=== PATIENT | female | born 1945 | race Caucasian/White ===

== ENCOUNTER 2017-08-30 08:20 | Inpatient (IN) | payer MEDICARE, BC ==
[2017-08-30] MEDS ORDERED: methylPREDNISolone Sodium Succinate 40 MG/1 ML SDV IVPUSH ONE (08:44)
[2017-08-30] MEDS ORDERED: Sodium Chloride 0.9% 10 ML Syringe FLUSH PRN (08:44)
--- NOTE | 2017-08-30 08:50 | EDM.PDOC ---
ED HPI GENERAL MEDICAL PROBLEM - General Chief Complaint: Respiratory Problem Stated Complaint: [facility] Time Seen by Provider: 08/30/17 08:35 Source of Information: Reports: Patient, EMS, Old Records History Limitations: Reports: No Limitations - History of Present Illness INITIAL COMMENTS - FREE TEXT/NARRATIVE: 71 yo female with known COPD who still smokes developed SOB about 24 hrs ago that has progressed. Had not sought medical care until calling EMS today. She has not had a fever. Her cough has been non-productive. She has some central chest tightness with deep breathing or coughing only. No leg swelling or calf pain. Lives with her who is not coming in at this time. Got a Duoneb and an albuterol neb en route via EMS with some benefit. Is on home O2 @ 3 liters/min/nc. Onset: Gradual Onset Date: 08/29/17 Duration: Hour(s):, Getting Worse Location: Reports: Chest Quality: Reports: Dull (sternal area with breathing/coughing) Severity: Mild (discomfort is mild, SOB was severe.) Improves with: Reports: Medication Worsens with: Reports: Other (time/smoking) Context: Reports: Other (life long smoker with known COPD) Associated Symptoms: Reports: Chest Pain (mild sternal tenderness with coughing or deep breathing only), Cough, Shortness of Breath. 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: 2 nebs Denies Pain Score (Numeric/FACES): 0 - Related Data Allergies Allergy/AdvReac Type Severity Reaction Status Date / Time SEB Inhibitors AdvReac Cough Verified 08/30/17 08:38 Home Meds: Home Meds Albuterol Sulfate [Proair Hfa] 2 puff PO QID 04/29/15 [History] Amitriptyline [Elavil] 20 mg PO BEDTIME PRN 04/29/15 [History] Tiotropium [Spiriva HandiHaler] 1 cap PO DAILY 04/29/15 [History] amLODIPine [Norvasc] 5 mg PO DAILY 04/29/15 [History] Arformoterol [Brovana] 1 dose INH BID 08/30/17 [History] Gabapentin [Neurontin] 300 mg PO BID 08/30/17 [History] Past Medical History HEENT History: Reports: Cataract Cardiovascular History: Reports: Hypertension 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, 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: Musculoskeletal History: Reports: Back Pain, Chronic - Infectious Disease History Infectious Disease History: Reports: Chicken Pox - Past Surgical History Female Surgical History: Reports: Section Social & Family History - Family History Family Medical History: Noncontributory - Tobacco Use Smoking Status *Q: Current Some Day Smoker Years of Tobacco use: 40 Packs/Tins Daily: 1 Second Hand Smoke Exposure: No - Alcohol Use Days Per Week of Alcohol Use: 1 Number of Drinks Per Day: 1 Total Drinks Per Week: 1 - Recreational Drug Use Recreational Drug Use: No - Living Situation & Occupation Living situation: Reports: Occupation: Employed ED ROS GENERAL - Review of Systems Review Of Systems: See Below Constitutional: Reports: No Symptoms HEENT: Reports: No Symptoms Respiratory: Reports: Shortness of Breath, Wheezing, Cough. Denies: Pleuritic Chest Pain, Sputum, Hemoptysis Cardiovascular: Reports: No Symptoms GI/Abdominal: Reports: No Symptoms : Reports: No Symptoms Musculoskeletal: Reports: No Symptoms Skin: Reports: No Symptoms Neurological: Reports: No Symptoms Psychiatric: Reports: No Symptoms ED EXAM, GENERAL - Physical Exam Exam: See Below Exam Limited By: No Limitations General Appearance: Alert, WD/WN, Mild Distress Eye Exam: Bilateral Eye: Normal Inspection Ears: Normal External Exam, Normal Canal, Hearing Grossly Normal, Normal TMs Ear Exam: Bilateral Ear: Auricle Normal, Canal Normal, TM normal Nose: Normal Inspection, Normal Mucosa, No Blood Throat/Mouth: Normal Inspection, Normal Lips, Normal Oropharynx, Normal Voice, No Airway Compromise Head: Atraumatic, Normocephalic Neck: Normal Inspection, Supple, Non-Tender Respiratory/Chest: No Respiratory Distress (minimal currently), Decreased Breath Sounds, Wheezing, Accessory Muscle Use, Other (mild tachypnea) Cardiovascular: Regular Rate, Rhythm, Tachycardia GI/Abdominal: Normal Bowel Sounds, Soft, Non-Tender Back Exam: Normal Inspection. No: CVA Tenderness (R), CVA Tenderness (L) Extremities: Normal Inspection, Normal Range of Motion, Non-Tender, No Pedal Edema Neurological: Alert, Oriented, CN II-XII Intact, Normal Cognition, No Motor/ Sensory Deficits Psychiatric: Normal Affect, Normal Mood Skin Exam: Warm, Dry, Intact, Normal Color, No Rash Lymphatic: No Adenopathy Course - Vital Signs Text/Narrative:: Dr. Neri called @ 1036h, to see in ER. Last Recorded V/S: Last Vital Signs Temp 36.0 C 08/30/17 08:36 Pulse 98 08/30/17 10:25 Resp 20 08/30/17 10:25 BP 144/84 H 08/30/17 10:25 Pulse Ox 95 08/30/17 10:25 - Orders/Labs/Meds Orders: Active Orders 24 hr Category Date Time Status Cardiac Monitoring [RC] .As Directed Care 08/30/17 08:54 Active RT Aerosol Therapy [RC] ASDIRECTED Care 08/30/17 09:25 Active UA W/MICROSCOPIC [URIN] Stat Lab 08/30/17 09:52 Ordered Sodium Chloride 0.9% [Saline Flush] Med 08/30/17 08:44 Active 10 ml FLUSH ASDIRECTED PRN Saline Lock Insert [OM.PC] Routine Oth 08/30/17 08:44 Ordered Medication Orders Sodium Chloride (Saline Flush) 10 ml FLUSH ASDIRECTED PRN PRN Reason: Keep Vein Open Last Admin: 08/30/17 08:59 Dose: 10 ml Labs: Laboratory Tests 08/30/17 08/30/17 08/30/17 Range/Units 08:54 08:54 09:52 WBC 7.2 (4.5-11.0) K/uL RBC 4.53 (3.30-5.50) M/uL Hgb 12.4 (12.0-15.0) g/dL Hct 39.7 (36.0-48.0) % MCV 88 (80-98) fL MCH 27 (27-31) pg MCHC 31 L (32-36) % Plt Count 227 (150-400) K/uL Sodium 141 (140-148) mmol/L Potassium 3.8 (3.6-5.2) mmol/L Chloride 105 (100-108) mmol/L Carbon Dioxide 29 (21-32) mmol/L Anion Gap 7.1 (5.0-14.0) mmol/L BUN 13 (7-18) mg/dL Creatinine 0.6 (0.6-1.0) mg/dL Est Cr Clr Drug Dosing 63.56 mL/min Estimated GFR (MDRD) > 60 (>60) Glucose 107 H (74-106) mg/dL Calcium 8.8 (8.5-10.1) mg/dL Troponin I < 0.017 (0.000-0.056) ng/mL Urine Color Yellow Urine Appearance Clear Urine pH 6.0 (4.5-8.0) Ur Specific [place] 1.020 (1.008-1.030) Urine Protein Negative (NEGATIVE) mg/dL Urine Glucose (UA) Normal (NEGATIVE) mg/dL Urine Ketones Negative (NEGATIVE) mg/dL Urine Occult Blood Moderate (NEGATIVE) Urine Nitrite Negative (NEGATIVE) Urine Bilirubin Negative (NEGATIVE) Urine Urobilinogen Normal (NORMAL) mg/dL Ur Leukocyte Esterase Negative (NEGATIVE) Urine RBC 0-5 (0-5) Urine WBC 0-5 (0-5) Ur Epithelial Cells Many Amorphous Sediment Few Urine Bacteria Not seen Urine Mucus Not seen Meds: Medications Generic Name Dose Route Start Last Admin Trade Name Freq PRN Reason Stop Dose Admin Sodium Chloride 10 ml 08/30/17 08:44 08/30/17 08:59 Saline Flush FLUSH 10 ml ASDIRECTED PRN Administration Keep Vein Open Discontinued Medications Generic Name Dose Route Start Last Admin Trade Name Freq PRN Reason Stop Dose Admin Acetaminophen 1,000 mg 08/30/17 09:22 08/30/17 09:33 Tylenol Extra Strength PO 08/30/17 09:23 1,000 mg ONETIME ONE Administration Albuterol 2.5 mg 08/30/17 09:25 08/30/17 09:37 Proventil Neb Soln NEB 08/30/17 09:26 2.5 mg ONETIME ONE Administration Amlodipine Besylate 5 mg 08/30/17 09:18 08/30/17 09:33 Norvasc PO 08/30/17 09:19 5 mg ONETIME ONE Administration Lorazepam 0.25 mg 08/30/17 09:18 08/30/17 09:35 Ativan PO 08/30/17 09:19 0.25 mg ONETIME ONE Administration Methylprednisolone Sodium Succinate 40 mg 08/30/17 08:44 08/30/17 08:57 Solu-Medrol IVPUSH 08/30/17 08:45 40 mg ONETIME ONE Administration - Radiology Interpretation Free Text/Narrative:: CXR-no changes noted. Departure - Departure Time of Disposition: 10:55 Disposition: Refer to Observation Condition: Fair Clinical Impression: COPD with acute exacerbation - Discharge Information Referrals: Kathleen Dobson PA [Primary Care Provider] - Forms: ED Department Discharge - My Orders Last 24 Hours: My Active Orders 08/30/17 08:44 Sodium Chloride 0.9% [Saline Flush] 10 ml FLUSH ASDIRECTED PRN Saline Lock Insert [OM.PC] Routine 08/30/17 08:54 Cardiac Monitoring [RC] .As Directed 08/30/17 09:25 RT Aerosol Therapy [RC] ASDIRECTED 08/30/17 09:52 UA W/MICROSCOPIC [URIN] Stat - Assessment/Plan Last 24 Hours: My Active Orders 08/30/17 08:44 Sodium Chloride 0.9% [Saline Flush] 10 ml FLUSH ASDIRECTED PRN Saline Lock Insert [OM.PC] Routine 08/30/17 08:54 Cardiac Monitoring [RC] .As Directed 08/30/17 09:25 RT Aerosol Therapy [RC] ASDIRECTED 08/30/17 09:52 UA W/MICROSCOPIC [URIN] Stat
[2017-08-30] MEDS ORDERED: LORazepam 0.5 MG Tab PO ONE (09:18)
[2017-08-30] MEDS ORDERED: amLODIPine 5 MG Tab PO ONE (09:18)
[2017-08-30] MEDS ORDERED: Acetaminophen 500 MG Tab PO ONE (09:22)
[2017-08-30] MEDS ORDERED: Albuterol 0.083% 2.5 MG/3 ML Neb Soln NEB ONE (09:25)
--- NOTE | 2017-08-30 10:23 | CR ---
Heart size within normal limits. Mild interstitial thickening which may be chronic. No focal consolid ation. Correlate for any vascular congestion however.
--- NOTE | 2017-08-30 11:08 | PCM.HP ---
H&P History of Present Illness - General Date of Service: 08/30/17 Admit Problem/Dx: Admission Diagnosis/Problem Admission Diagnosis/Problem Acute exacerbation of chronic obstructive airways disease Source of Information: Patient, Provider History Limitations: Reports: No Limitations - History of Present Illness Initial Comments - Free Text/Narative: Aarti presents to the emergency room today with 2 days of progressive cough and shortness of breath. She is now short of breath with even minimal activity. Cough has been dry and nonproductive. She is not aware of any fevers and has not traveled recently. No orthopnea or PND. No obvious sick contacts. She does report some mild achy chest discomfort that occurs with deep respiration. No significant change with exertion. She has had some nausea but no vomiting. No change in bowel or bladder habits. She has not had recent treatment with antibiotics or steroids. She has not had relief from her albuterol inhaler. At baseline she uses 3 L of oxygen at home. Baseline functional status is very limited and she is able to walk only short distances before she develops significant dyspnea. Workup in the emergency room was remarkable for significant wheezing on examination. She is short of breath at rest at this time. Laboratory studies and chest x-ray are unremarkable other than the hyperinflation noted on the chest x-ray. She will be admitted for management of a COPD exacerbation. Denies Pain Score (Numeric/FACES): 0 - Related Data Allergies/Adverse Reactions: Allergies Allergy/AdvReac Type Severity Reaction Status Date / Time SEB Inhibitors AdvReac Cough Verified 08/30/17 08:38 Home Medications: Home Meds Albuterol Sulfate [Proair Hfa] 2 puff PO QID 04/29/15 [History] Amitriptyline [Elavil] 20 mg PO BEDTIME PRN 04/29/15 [History] Tiotropium [Spiriva HandiHaler] 1 cap PO DAILY 04/29/15 [History] amLODIPine [Norvasc] 5 mg PO DAILY 04/29/15 [History] *O2@3l 3 l INH ASDIRECTED PRN 08/30/17 [History] Arformoterol [Brovana] 1 dose INH BID 08/30/17 [History] Gabapentin [Neurontin] 300 mg PO BID 08/30/17 [History] Past Medical History HEENT History: Reports: Cataract Cardiovascular History: Reports: Hypertension 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, 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: Musculoskeletal History: Reports: Back Pain, Chronic - Infectious Disease History Infectious Disease History: Reports: Chicken Pox - Past Surgical History Female Surgical History: Reports: Section Social & Family History - Family History Family Medical History: Noncontributory - Tobacco Use Smoking Status *Q: Current Some Day Smoker Years of Tobacco use: 40 Packs/Tins Daily: 1 Used Tobacco, but Quit: Yes Month/Year Tobacco Last Used: 08/27/17 Second Hand Smoke Exposure: No - Caffeine Use Caffeine Use: Reports: Coffee, Soda - Alcohol Use Days Per Week of Alcohol Use: 1 Number of Drinks Per Day: 1 Total Drinks Per Week: 1 - Recreational Drug Use Recreational Drug Use: No - Living Situation & Occupation Living situation: Reports: Occupation: Employed H&P Review of Systems - Review of Systems: Review Of Systems: See Below Free Text/Narrative: A complete 12 point review of systems was obtained. Pertinent positives and negatives are noted in the history of present illness. All other systems were reviewed and were negative except as noted. Exam - Exam Exam: See Below - Vital Signs Vital Signs: Last Vital Signs Temp 36.0 C 08/30/17 08:36 Pulse 98 08/30/17 10:25 Resp 20 08/30/17 10:25 BP 144/84 H 08/30/17 10:25 Pulse Ox 95 08/30/17 10:25 Weight: 55.338 kg - Exam Quality Assessment: Supplemental Oxygen General: Alert, Oriented, Cooperative, Mild Distress HEENT: Conjunctiva Clear, Mucosa Moist & [place]. No: Scleral Icterus Neck: Supple, Trachea Midline. No: Lymphadenopathy, JVD Lungs: Wheezing (diffuse exp wheezing). No: Normal Respiratory Effort ( increased work of breathing) Cardiovascular: Regular Rhythm, Tachycardia. No: Systolic Murmur GI/Abdominal Exam: Normal Bowel Sounds, Soft, Non-Tender, No Distention Back Exam: Normal Inspection, Full Range of Motion Extremities: No Pedal Edema. No: Increased Warmth Peripheral Pulses: 2+: Dorsalis Pedis (L), Dorsalis Pedis (R) Skin: Warm, Dry, [place] (right hand) Neuro Extensive - Mental Status: Alert, Oriented x3, Nl Response to Commands Neuro Extensive - Motor, Sensory, Reflexes: Abnormal Gait. No: Dysarthria, Abnormal Motor, Tremor Psychiatric: Alert, Normal Affect - Patient Data Lab Results Last 24 hrs: Laboratory Results - last 24 hr 08/30/17 08/30/17 08/30/17 Range/Units 08:54 08:54 09:52 WBC 7.2 (4.5-11.0) K/uL RBC 4.53 (3.30-5.50) M/uL Hgb 12.4 (12.0-15.0) g/dL Hct 39.7 (36.0-48.0) % MCV 88 (80-98) fL MCH 27 (27-31) pg MCHC 31 L (32-36) % Plt Count 227 (150-400) K/uL Sodium 141 (140-148) mmol/L Potassium 3.8 (3.6-5.2) mmol/L Chloride 105 (100-108) mmol/L Carbon Dioxide 29 (21-32) mmol/L Anion Gap 7.1 (5.0-14.0) mmol/L BUN 13 (7-18) mg/dL Creatinine 0.6 (0.6-1.0) mg/dL Est Cr Clr Drug Dosing 63.56 mL/min Estimated GFR (MDRD) > 60 (>60) Glucose 107 H (74-106) mg/dL Calcium 8.8 (8.5-10.1) mg/dL Troponin I < 0.017 (0.000-0.056) ng/mL Urine Color Yellow Urine Appearance Clear Urine pH 6.0 (4.5-8.0) Ur Specific [place] 1.020 (1.008-1.030) Urine Protein Negative (NEGATIVE) mg/dL Urine Glucose (UA) Normal (NEGATIVE) mg/dL Urine Ketones Negative (NEGATIVE) mg/dL Urine Occult Blood Moderate (NEGATIVE) Urine Nitrite Negative (NEGATIVE) Urine Bilirubin Negative (NEGATIVE) Urine Urobilinogen Normal (NORMAL) mg/dL Ur Leukocyte Esterase Negative (NEGATIVE) Urine RBC 0-5 (0-5) Urine WBC 0-5 (0-5) Ur Epithelial Cells Many Amorphous Sediment Few Urine Bacteria Not seen Urine Mucus Not seen Result Diagrams: 08/30/17 08:54 08/30/17 08:54 Imaging Impressions Last 24 hrs: CXR - images personally reviewed - hyperfinflation but no mass, effusion or infiltrate *Q Meaningful Use (ADM) - VTE Risk Assess *Q Each Risk Factor Represents 1 Point: Serious lung disease including pneumonia, Abnormal Pulmonary Function (COPD) Total Score 1 Point Risk Factors: 2 Each Risk Factor Represents 2 Points: Age 60 - 74 Years Total Score 2 Point Risk Factors: 2 Each Risk Factor Represents 3 Points: None Total Score 3 Point Risk Factors: 0 Each Risk Factor Represents 5 Points: None Total Score 5 Point Risk Factors: 0 Venous Thromboembolism Risk Factor Score *Q: 4 - Problem List (1) Nicotine addiction SNOMED Code(s): 63245339 ICD Code: F17.200 - NICOTINE DEPENDENCE, UNSPECIFIED, UNCOMPLICATED Status : Acute Priority: High Current Visit: No Qualifiers: Nicotine product type: cigarettes Substance use status: other nicotine- induced disorder Qualified Code(s): F17.218 - Nicotine dependence, cigarettes , with other nicotine-induced disorders (2) COPD with acute exacerbation SNOMED Code(s): 298988067 ICD Code: J44.1 - CHRONIC OBSTRUCTIVE PULMONARY DISEASE W (ACUTE) EXACERBATION Status: Acute Priority: High Current Visit: Yes Problem List Initiated/Reviewed/Updated: Yes Orders Last 24hrs: Active Orders 24 hr Category Date Time Status Patient Status Manage Transfer [TRANSFER] Routine ADT 08/30/17 10:59 Ordered Cardiac Monitoring [RC] .As Directed Care 08/30/17 08:54 Active RT Aerosol Therapy [RC] ASDIRECTED Care 08/30/17 09:25 Active UA W/MICROSCOPIC [URIN] Stat Lab 08/30/17 09:52 Ordered Sodium Chloride 0.9% [Saline Flush] Med 08/30/17 08:44 Active 10 ml FLUSH ASDIRECTED PRN Saline Lock Insert [OM.PC] Routine Oth 08/30/17 08:44 Ordered Resuscitation Status Routine Resus Stat 08/30/17 11:01 Ordered Medication Orders Sodium Chloride (Saline Flush) 10 ml FLUSH ASDIRECTED PRN PRN Reason: Keep Vein Open Last Admin: 08/30/17 08:59 Dose: 10 ml Assessment/Plan Comment:: ASSESSMENT AND PLAN - Acute exacerbation of COPD - no strong evidence to support infection at this time. Viral infection is a possibility and environmental exposure, though none are obvious, is a possibility. White count is normal and she is afebrile. Baseline is severe oxygen dependent COPD with 3 L/m required. -IV steroids -Scheduled and as needed nebulizers -Supplement oxygen -Continue home medications -Cough suppressants Tobacco dependence - patient reports that she quit 2 days ago. Long history of smoking. -Encourage ongoing cessation Maintenance issues - - DVT prophylaxis - mechanical - GI prophylaxis - not indicated - Nutrition - regular diet - Streeter catheter - not indicated CODE STATUS - Patient wishes to be full code Admission justification - This patient will be admitted for inpatient services and is medically appropriate meeting medical necessity for inpatient admission as outlined in my documentation. I reasonably expect the patient will require inpatient services that span a period time over 2 midnights. I reasonably expect this patient to be discharged or transferred within 96 hours after admission to the [facility]. Disposition - anticipate discharge home after the hospital stay Primary care physician - Kathleen Neri M.D.
[2017-08-30] MEDS ORDERED: Acetaminophen 325 MG Tab PO PRN (13:24)
[2017-08-30] MEDS ORDERED: Polyethylene Glycol 3350 Powder 17 GM Packet PO PRN (13:24)
[2017-08-30] MEDS ORDERED: Ondansetron 4 MG/2 ML SDV IV PRN (13:24)
[2017-08-30] MEDS ORDERED: Amitriptyline 10 MG Tab PO PRN (13:24)
[2017-08-30] MEDS: Albuterol/Ipratropium 3.0-0.5 MG/3 ML Neb Soln NEB SCH ×2 (14:37→21:54)
[2017-08-30] MEDS: methylPREDNISolone Sodium Succinate 125 MG/2 ML SDV IVPUSH SCH ×2 (15:18→22:01)
[2017-08-30] MEDS: LORazepam 0.5 MG Tab PO PRN (16:06)
[2017-08-30] MEDS: Albuterol 0.083% 2.5 MG/3 ML Neb Soln NEB PRN (19:35)
[2017-08-30] MEDS ORDERED: Arformoterol 15 MCG/2 ML Neb Soln INH SCH (21:00)
[2017-08-30] MEDS: Morphine 10 MG/0.5 ML Oral Syringe PO PRN (21:52)
[2017-08-30] MEDS: Gabapentin 300 MG Cap PO SCH (22:01)
[2017-08-30] MEDS: Arformoterol 15 MCG/2 ML Neb Soln INH SCH (22:01)
[2017-08-30] MEDS: Benzonatate 100 MG Cap PO PRN (22:51)
[2017-08-31] MEDS: Morphine 10 MG/0.5 ML Oral Syringe PO PRN ×4 (04:17→21:38)
[2017-08-31] MEDS: methylPREDNISolone Sodium Succinate 125 MG/2 ML SDV IVPUSH SCH ×3 (05:46→21:04)
[2017-08-31] MEDS: Albuterol/Ipratropium 3.0-0.5 MG/3 ML Neb Soln NEB SCH ×4 (08:05→21:03)
[2017-08-31] MEDS: LORazepam 0.5 MG Tab PO PRN ×2 (08:13→14:59)
[2017-08-31] MEDS: Arformoterol 15 MCG/2 ML Neb Soln INH SCH ×2 (08:18→21:04)
[2017-08-31] MEDS: Tiotropium Inhaler 18 MCG Inhalation Powder Cap Kit of 5 INH SCH (08:18)
[2017-08-31] MEDS: amLODIPine 5 MG Tab PO SCH (09:06)
[2017-08-31] MEDS: Gabapentin 300 MG Cap PO SCH ×2 (09:06→21:03)
--- NOTE | 2017-08-31 10:36 | PCM.PN ---
- General Info Date of Service: 08/31/17 Functional Status: Reports: Pain Controlled, Tolerating Diet - Review of Systems General: Denies: Fever Pulmonary: Reports: Shortness of Breath, Cough Cardiovascular: Reports: Chest Pain Systems Review Comment:: No acute events overnight though the patient did have some difficulty with dyspnea. This did respond well to buccal morphine. She feels a little better today with slight improvement in her shortness of breath. She does feel like she is wheezing more today. Still very short of breath with any activity. Oxygen saturation stable with 3 L of supplemental oxygen. She has not had any fevers. - Patient Data Vitals - Most Recent: Last Vital Signs Temp 37.2 C 08/31/17 06:58 Pulse 118 H 08/31/17 08:19 Resp 20 08/31/17 06:58 BP 114/52 L 08/31/17 09:06 Pulse Ox 88 L 08/31/17 08:19 Weight - Most Recent: 55.338 kg I&O - Last 24 Hours: Intake & Output 08/30/17 08/31/17 08/31/17 22:59 06:59 14:59 Output Total 150 150 200 Balance -150 -150 -200 Lab Results Last 24 Hours: Laboratory Results - last 24 hr 08/31/17 Range/Units 04:37 WBC 6.7 (4.5-11.0) K/uL RBC 4.35 (3.30-5.50) M/uL Hgb 12.0 (12.0-15.0) g/dL Hct 37.6 (36.0-48.0) % MCV 86 (80-98) fL MCH 28 (27-31) pg MCHC 32 (32-36) % Plt Count 230 (150-400) K/uL Med Orders - Current: Current Medications Acetaminophen (Tylenol) 650 mg PO Q4H PRN PRN Reason: Pain (Mild 1-3)/fever Albuterol (Proventil Neb Soln) 2.5 mg NEB Q4H PRN PRN Reason: Shortness Of Breath/wheezing Last Admin: 08/30/17 19:35 Dose: 2.5 mg Albuterol/Ipratropium (Duoneb 3.0-0.5 Mg/3 Ml) 3 ml NEB QIDRT [place] Last Admin: 08/31/17 08:05 Dose: 3 ml Amitriptyline HCl (Elavil) 20 mg PO BEDTIME PRN PRN Reason: Insomnia Amlodipine Besylate (Norvasc) 5 mg PO DAILY [facility] Last Admin: 08/31/17 09:06 Dose: 5 mg Arformoterol Tartrate (Brovana) 15 mcg INH BIDRT [facility] Last Admin: 08/31/17 08:18 Dose: 15 mcg Benzonatate (Tessalon Perles) 100 mg PO TID PRN PRN Reason: Cough Last Admin: 08/30/17 22:51 Dose: 100 mg Gabapentin (Neurontin) 300 mg PO BID [facility] Last Admin: 08/31/17 09:06 Dose: 300 mg Guaifenesin/Codeine Phosphate (Robitussin Ac) 10 ml PO Q4H PRN PRN Reason: Cough Ibuprofen (Motrin) 600 mg PO Q6H PRN PRN Reason: Pain/Fever Lorazepam (Ativan) 0.5 mg PO Q4H PRN PRN Reason: Anxiety Last Admin: 08/31/17 08:13 Dose: 0.5 mg Methylprednisolone Sodium Succinate (Solu-Medrol) 62.5 mg IVPUSH Q8H [facility] Last Admin: 08/31/17 05:46 Dose: 62.5 mg Morphine Sulfate (Morphine 10 Mg/0.5 Ml Oral Syringe) 5 mg PO Q2H PRN PRN Reason: Dyspnea Last Admin: 08/31/17 04:17 Dose: 5 mg Ondansetron HCl (Zofran Odt) 4 mg PO Q6H PRN PRN Reason: Nausea able to take PO Ondansetron HCl (Zofran) 4 mg IV Q6H PRN PRN Reason: Nausea/Vomiting Polyethylene Glycol (Miralax) 17 gm PO DAILY PRN PRN Reason: Constipation Senna/Docusate Sodium (Senna Plus) 1 tab PO BID PRN PRN Reason: Constipation Sodium Chloride (Saline Flush) 10 ml FLUSH ASDIRECTED PRN PRN Reason: Keep Vein Open Last Admin: 08/30/17 08:59 Dose: 10 ml Tiotropium [place] (Spiriva Handihaler) 18 mcg INH DAILY@0730 [facility] Last Admin: 08/31/17 08:18 Dose: 1 cap Discontinued Medications Acetaminophen (Tylenol Extra Strength) 1,000 mg PO ONETIME ONE Stop: 08/30/17 09:23 Last Admin: 08/30/17 09:33 Dose: 1,000 mg Albuterol (Proventil Neb Soln) 2.5 mg NEB ONETIME ONE Stop: 08/30/17 09:26 Last Admin: 08/30/17 09:37 Dose: 2.5 mg Amlodipine Besylate (Norvasc) 5 mg PO ONETIME ONE Stop: 08/30/17 09:19 Last Admin: 08/30/17 09:33 Dose: 5 mg Lorazepam (Ativan) 0.25 mg PO ONETIME ONE Stop: 08/30/17 09:19 Last Admin: 08/30/17 09:35 Dose: 0.25 mg Methylprednisolone Sodium Succinate (Solu-Medrol) 40 mg IVPUSH ONETIME ONE Stop: 08/30/17 08:45 Last Admin: 08/30/17 08:57 Dose: 40 mg - Exam Quality Assessment: Supplemental Oxygen General: Alert, Oriented, Cooperative, Mild Distress Neck: Supple Lungs: Wheezing (diffuse bilateral exp wheezing). No: Normal Respiratory Effort (increased work of breathing) Cardiovascular: Regular Rate, Regular Rhythm GI/Abdominal Exam: Soft, No Distention Extremities: No Pedal Edema Psy/Mental Status: Alert, Normal Affect - Problem List & Annotations (1) COPD with acute exacerbation SNOMED Code(s): 766581721 Code(s): J44.1 - CHRONIC OBSTRUCTIVE PULMONARY DISEASE W (ACUTE) EXACERBATION Status: Acute Priority: High Current Visit: Yes (2) Nicotine addiction SNOMED Code(s): 41554466 Code(s): F17.200 - NICOTINE DEPENDENCE, UNSPECIFIED, UNCOMPLICATED Status: Acute Priority: High Current Visit: No Qualifiers: Nicotine product type: cigarettes Substance use status: other nicotine- induced disorder Qualified Code(s): F17.218 - Nicotine dependence, cigarettes , with other nicotine-induced disorders - Problem List Review Problem List Initiated/Reviewed/Updated: Yes - My Orders Last 24 Hours: My Active Orders 08/30/17 11:01 Resuscitation Status Routine 08/30/17 13:24 Patient Status [ADT] Routine Bedrest Bedside Commode [RC] ASDIRECTED Notify Provider Vital Signs [RC] ASDIRECTED Oxygen Therapy [RC] PRN RT Aerosol Therapy [RC] ASDIRECTED VTE/DVT Education [RC] Per Unit Routine Vital Signs [RC] Q4H Acetaminophen [Tylenol] 650 mg PO Q4H PRN Albuterol [Proventil Neb Soln] 2.5 mg NEB Q4H PRN Amitriptyline [Elavil] 20 mg PO BEDTIME PRN Benzonatate [Tessalon Perles] 100 mg PO TID PRN Codeine/guaiFENesin [Robitussin AC] 10 ml PO Q4H PRN Docusate Sodium/Sennosides [Senna Plus] 1 tab PO BID PRN Ibuprofen [Motrin] 600 mg PO Q6H PRN LORazepam [Ativan] 0.5 mg PO Q4H PRN Ondansetron [Zofran ODT] 4 mg PO Q6H PRN Ondansetron [Zofran] 4 mg IV Q6H PRN Polyethylene Glycol 3350 [MiraLAX] 17 gm PO DAILY PRN Sequential Compression Device [OM.PC] Per Unit Routine 08/30/17 14:00 methylPREDNISolone Sod Succ [Solu-MEDROL] 62.5 mg IVPUSH Q8H 08/30/17 15:00 Albuterol/Ipratropium [DuoNeb 3.0-0.5 MG/3 ML] 3 ml NEB QIDRT 08/30/17 21:00 Arformoterol [Brovana] 15 mcg INH BIDRT Gabapentin [Neurontin] 300 mg PO BID 08/30/17 21:30 Morphine [Morphine 10 MG/0.5 ML Oral Syringe] 5 mg PO Q2H PRN 08/30/17 Lunch Regular Diet [DIET] 08/31/17 03:46 Physical Therapy Screening [PT Screening] [OM.PC] Routine 08/31/17 07:30 Tiotropium [Spiriva HandiHaler] 18 mcg INH DAILY@0730 08/31/17 09:00 amLODIPine [Norvasc] 5 mg PO DAILY 09/01/17 05:00 BASIC METABOLIC PANEL,BMP [CHEM] Timed CBC W/O DIFF,HEMOGRAM [HEME] Timed (1) - Plan Plan:: ASSESSMENT AND PLAN - Acute exacerbation of COPD - no strong evidence to support acute bacterial infection at this time. Appears slightly better today but still very short of breath with even minimal activity and still tachypneic even at rest. -Continue IV steroids -Scheduled and as needed nebulizers -Supplement oxygen -Continue home medications -Cough suppressants -consider antibiotics if productive cough or fever Tobacco dependence - patient reports that she quit a few days ago. Long history of smoking. -Encourage ongoing cessation Maintenance issues - - DVT prophylaxis - mechanical - GI prophylaxis - not indicated - Nutrition - regular diet Disposition - anticipate discharge home after the hospital stay James Neri M.D.
[2017-09-01] MEDS: methylPREDNISolone Sodium Succinate 125 MG/2 ML SDV IVPUSH SCH ×3 (05:11→21:40)
[2017-09-01] MEDS: Arformoterol 15 MCG/2 ML Neb Soln INH SCH ×2 (07:24→21:38)
[2017-09-01] MEDS: Tiotropium Inhaler 18 MCG Inhalation Powder Cap Kit of 5 INH SCH (07:24)
[2017-09-01] MEDS: Albuterol/Ipratropium 3.0-0.5 MG/3 ML Neb Soln NEB SCH ×2 (07:24→12:43)
[2017-09-01] MEDS: LORazepam 0.5 MG Tab PO PRN ×3 (07:43→23:10)
[2017-09-01] MEDS: amLODIPine 5 MG Tab PO SCH (08:30)
[2017-09-01] MEDS: Gabapentin 300 MG Cap PO SCH ×2 (08:30→21:40)
--- NOTE | 2017-09-01 11:11 | PCM.PN ---
- General Info Date of Service: 09/01/17 Functional Status: Reports: Pain Controlled, Tolerating Diet - Review of Systems General: Reports: Weakness, Fatigue Pulmonary: Reports: Shortness of Breath, Cough Systems Review Comment:: no acute issues overnight but he came very short of breath following her nebulizer treatment this morning. She required lorazepam to help settle her breathing down after the event. She is resting more comfortably now after a short nap. She still feels short of breath at rest and is very short of breath with any activity. Oxygenation has been stable on 3 L/m. She has not had fevers. White count is up today but could be steroid effect. - Patient Data Vitals - Most Recent: Last Vital Signs Temp 36.6 C 09/01/17 07:21 Pulse 113 H 09/01/17 07:26 Resp 18 09/01/17 07:21 BP 120/60 09/01/17 08:30 Pulse Ox 96 09/01/17 07:25 Weight - Most Recent: 55.338 kg I&O - Last 24 Hours: Intake & Output 08/31/17 09/01/17 09/01/17 22:59 06:59 14:59 Output Total 475 250 150 Balance -475 -250 -150 Lab Results Last 24 Hours: Laboratory Results - last 24 hr 09/01/17 09/01/17 Range/Units 05:18 05:18 WBC 14.6 H (4.5-11.0) K/uL RBC 4.16 (3.30-5.50) M/uL Hgb 11.4 L (12.0-15.0) g/dL Hct 36.9 (36.0-48.0) % MCV 89 (80-98) fL MCH 27 (27-31) pg MCHC 31 L (32-36) % Plt Count 244 (150-400) K/uL Sodium 142 (140-148) mmol/L Potassium 4.3 (3.6-5.2) mmol/L Chloride 104 (100-108) mmol/L Carbon Dioxide 28 (21-32) mmol/L Anion Gap 10.2 (5.0-14.0) mmol/L BUN 44 H D (7-18) mg/dL Creatinine 1.1 H D (0.6-1.0) mg/dL Est Cr Clr Drug Dosing 34.67 mL/min Estimated GFR (MDRD) 49 L (>60) Glucose 166 H (74-106) mg/dL Calcium 9.0 (8.5-10.1) mg/dL Med Orders - Current: Current Medications Acetaminophen (Tylenol) 650 mg PO Q4H PRN PRN Reason: Pain (Mild 1-3)/fever Albuterol (Proventil Neb Soln) 2.5 mg NEB Q4H PRN PRN Reason: Shortness Of Breath/wheezing Last Admin: 08/30/17 19:35 Dose: 2.5 mg Amitriptyline HCl (Elavil) 20 mg PO BEDTIME PRN PRN Reason: Insomnia Amlodipine Besylate (Norvasc) 5 mg PO DAILY [facility] Last Admin: 09/01/17 08:30 Dose: 5 mg Arformoterol Tartrate (Brovana) 15 mcg INH BIDRT [facility] Last Admin: 09/01/17 07:24 Dose: 15 mcg Azithromycin (Zithromax) 500 mg PO DAILY [facility] Benzonatate (Tessalon Perles) 100 mg PO TID PRN PRN Reason: Cough Last Admin: 08/30/17 22:51 Dose: 100 mg Gabapentin (Neurontin) 300 mg PO BID [facility] Last Admin: 09/01/17 08:30 Dose: 300 mg Guaifenesin/Codeine Phosphate (Robitussin Ac) 10 ml PO Q4H PRN PRN Reason: Cough Ceftriaxone Sodium 2 gm/ (Sodium Chloride) 50 mls @ 100 mls/hr IV Q24H [facility] Sodium Chloride (Normal Saline) 1,000 mls @ 125 mls/hr IV ASDIRECTED [facility] Stop: 09/01/17 19:14 Ibuprofen (Motrin) 600 mg PO Q6H PRN PRN Reason: Pain/Fever Levalbuterol HCl (Xopenex) 1.25 mg NEB QIDRT [facility] Lorazepam (Ativan) 0.5 mg PO Q4H PRN PRN Reason: Anxiety Last Admin: 09/01/17 07:43 Dose: 0.5 mg Methylprednisolone Sodium Succinate (Solu-Medrol) 62.5 mg IVPUSH Q8H [facility] Last Admin: 09/01/17 05:11 Dose: 62.5 mg Morphine Sulfate (Morphine 10 Mg/0.5 Ml Oral Syringe) 5 mg PO Q2H PRN PRN Reason: Dyspnea Last Admin: 08/31/17 21:38 Dose: 5 mg Ondansetron HCl (Zofran Odt) 4 mg PO Q6H PRN PRN Reason: Nausea able to take PO Ondansetron HCl (Zofran) 4 mg IV Q6H PRN PRN Reason: Nausea/Vomiting Pneumococcal Polyvalent Vaccine (Pneumovax 23) 0.5 ml IM .ONCE ONE Stop: 09/01/17 14:01 Polyethylene Glycol (Miralax) 17 gm PO DAILY PRN PRN Reason: Constipation Senna/Docusate Sodium (Senna Plus) 1 tab PO BID PRN PRN Reason: Constipation Sodium Chloride (Saline Flush) 10 ml FLUSH ASDIRECTED PRN PRN Reason: Keep Vein Open Last Admin: 08/30/17 08:59 Dose: 10 ml Tiotropium [place] (Spiriva Handihaler) 18 mcg INH DAILY@0730 [facility] Last Admin: 09/01/17 07:24 Dose: 1 cap Discontinued Medications Acetaminophen (Tylenol Extra Strength) 1,000 mg PO ONETIME ONE Stop: 08/30/17 09:23 Last Admin: 08/30/17 09:33 Dose: 1,000 mg Albuterol (Proventil Neb Soln) 2.5 mg NEB ONETIME ONE Stop: 08/30/17 09:26 Last Admin: 08/30/17 09:37 Dose: 2.5 mg Albuterol/Ipratropium (Duoneb 3.0-0.5 Mg/3 Ml) 3 ml NEB QIDRT [facility] Last Admin: 09/01/17 07:24 Dose: 3 ml Amlodipine Besylate (Norvasc) 5 mg PO ONETIME ONE Stop: 08/30/17 09:19 Last Admin: 08/30/17 09:33 Dose: 5 mg Lorazepam (Ativan) 0.25 mg PO ONETIME ONE Stop: 08/30/17 09:19 Last Admin: 08/30/17 09:35 Dose: 0.25 mg Methylprednisolone Sodium Succinate (Solu-Medrol) 40 mg IVPUSH ONETIME ONE Stop: 08/30/17 08:45 Last Admin: 08/30/17 08:57 Dose: 40 mg - Exam Quality Assessment: Supplemental Oxygen General: Alert, Oriented, Cooperative, No Acute Distress Neck: Supple Lungs: Wheezing (diffuse exp wheezing). No: Normal Respiratory Effort (mild increased work of breathing ) Cardiovascular: Regular Rate, Regular Rhythm GI/Abdominal Exam: Soft, No Distention Extremities: No Pedal Edema Psy/Mental Status: Alert, Normal Affect - Problem List & Annotations (1) COPD with acute exacerbation SNOMED Code(s): 305901666 Code(s): J44.1 - CHRONIC OBSTRUCTIVE PULMONARY DISEASE W (ACUTE) EXACERBATION Status: Acute Priority: High Current Visit: Yes (2) Nicotine addiction SNOMED Code(s): 61903511 Code(s): F17.200 - NICOTINE DEPENDENCE, UNSPECIFIED, UNCOMPLICATED Status: Acute Priority: High Current Visit: No Qualifiers: Nicotine product type: cigarettes Substance use status: other nicotine- induced disorder Qualified Code(s): F17.218 - Nicotine dependence, cigarettes , with other nicotine-induced disorders - Problem List Review Problem List Initiated/Reviewed/Updated: Yes - My Orders Last 24 Hours: My Active Orders 09/01/17 11:08 RT Acapella [RESPCARE] Routine 09/01/17 11:09 RT Aerosol Therapy [RC] ASDIRECTED 09/01/17 11:15 Azithromycin [Zithromax] 500 mg PO DAILY Levalbuterol HCl [Xopenex] 1.25 mg NEB QIDRT Sodium Chloride 0.9% [Normal Saline] 1,000 ml IV ASDIRECTED cefTRIAXone [Rocephin] 2 gm Sodium Chloride 0.9% [Normal Saline] 50 ml IV Q24H 09/01/17 14:00 Pneumococcal Polyvalent-23 Vac [Pneumovax 23] 0.5 ml IM .ONCE ONE 09/02/17 05:00 BASIC METABOLIC PANEL,BMP [CHEM] Timed CBC W/O DIFF,HEMOGRAM [HEME] Timed (1) - Plan Plan:: ASSESSMENT AND PLAN - Acute exacerbation of COPD - not making much improvement with steroids and nebulizers. Possible setback from the DuoNeb this morning. not having fevers but white count is up, unclear if this is related to steroids or infection. -Continue IV steroids -trial of antibiotics with ceftriaxone and azithromycin -Acapella -Scheduled (Xopenex) and as needed albuterol nebulizers -Supplement oxygen -Continue home medications -Cough suppressants Tobacco dependence - patient reports that she quit a few days ago. Long history of smoking. -Encourage ongoing cessation Maintenance issues - - DVT prophylaxis - mechanical - GI prophylaxis - not indicated - Nutrition - regular diet Disposition - anticipate discharge home after the hospital stay James Neri M.D.
[2017-09-01] MEDS ORDERED: Sodium Chloride 0.9% 1,000 ML IV SCH (11:15)
[2017-09-01] MEDS ORDERED: Levalbuterol HCl 1.25 MG/3 ML Neb NEB SCH (11:15)
[2017-09-01] MEDS: Morphine 10 MG/0.5 ML Oral Syringe PO PRN ×3 (11:38→21:39)
[2017-09-01] MEDS: Azithromycin 250 MG Tab PO SCH (11:39)
[2017-09-01] MEDS: cefTRIAXone 2 GM in Sodium Chloride 0.9% 50 ML IV SCH (11:39)
[2017-09-01] MEDS ORDERED: Pneumococcal Polyvalent-23 Vaccine 0.5 ML SDV IM ONE (14:00)
[2017-09-01] MEDS ORDERED: Albuterol 8 GM Inhaler INH PRN (14:13)
[2017-09-01] MEDS: Benzonatate 100 MG Cap PO PRN (19:52)
[2017-09-02] MEDS: methylPREDNISolone Sodium Succinate 125 MG/2 ML SDV IVPUSH SCH ×3 (05:04→21:16)
[2017-09-02] MEDS: Tiotropium Inhaler 18 MCG Inhalation Powder Cap Kit of 5 INH SCH (07:31)
[2017-09-02] MEDS: Arformoterol 15 MCG/2 ML Neb Soln INH SCH ×2 (07:31→21:17)
[2017-09-02] MEDS: Gabapentin 300 MG Cap PO SCH ×2 (08:34→21:17)
[2017-09-02] MEDS: Azithromycin 250 MG Tab PO SCH (08:34)
[2017-09-02] MEDS: amLODIPine 5 MG Tab PO SCH (08:34)
--- NOTE | 2017-09-02 11:31 | CR ---
Chest 1V Frontal HISTORY: dyspnea COMPARISON: 04/04/2010 FINDINGS: Lungs appear clear and normally aerated. Cardiomediastinal silhouette is within normal limits. Athero sclerotic aorta is redemonstrated. No vascular redistribution or pleural fluid can be seen. Bony stru ctures and soft tissues are unremarkable. IMPRESSION: No acute chest abnormality or significant interval change is identified.
[2017-09-02] MEDS ORDERED: Diltiazem 25 MG/5 ML SDV IVPUSH ONE (13:30)
[2017-09-02] MEDS: Morphine 10 MG/0.5 ML Oral Syringe PO PRN ×4 (13:36→23:29)
[2017-09-02] MEDS: LORazepam 0.5 MG Tab PO PRN ×3 (13:36→21:36)
--- NOTE | 2017-09-02 14:25 | PCM.PN ---
- General Info Date of Service: 09/02/17 Subjective Update: This patient has unfortunately developed increased shortness of breath this morning with elevation in heart rate. Chest x-ray was obtained which shows no evidence of new infiltrates or other acute findings. Blood gases did show borderline hypoxia with hypercapnia. EKG documents atrial fibrillation with rapid ventricular response. She reports increased shortness of breath and weakness, no significant change in cough which remains fairly mild and nonproductive. - Review of Systems General: Reports: Weakness. Denies: Fever, Chills Pulmonary: Reports: Shortness of Breath, Cough, Wheezing. Denies: Sputum, Hemoptysis Cardiovascular: Reports: Dyspnea on Exertion. Denies: Chest Pain, Palpitations , Orthopnea, PND, Edema, Lightheadedness Gastrointestinal: Reports: No Symptoms - Patient Data Vitals - Most Recent: Last Vital Signs Temp 98.1 F 09/02/17 13:47 Pulse 89 09/02/17 13:47 Resp 15 09/02/17 13:47 BP 123/63 09/02/17 13:47 Pulse Ox 95 09/02/17 13:47 Weight - Most Recent: 124 lb 12.506 oz I&O - Last 24 Hours: Intake & Output 09/01/17 09/02/17 09/02/17 22:59 06:59 14:59 Intake Total 955 Output Total 450 450 Balance 505 -450 Lab Results Last 24 Hours: Laboratory Results - last 24 hr 09/02/17 09/02/17 09/02/17 Range/Units 05:00 05:00 10:49 WBC 14.6 H (4.5-11.0) K/uL RBC 4.10 (3.30-5.50) M/uL Hgb 11.3 L (12.0-15.0) g/dL Hct 37.3 (36.0-48.0) % MCV 91 (80-98) fL MCH 28 (27-31) pg MCHC 30 L (32-36) % Plt Count 234 (150-400) K/uL Puncture Site Lt radial ABG pH 7.351 (7.350-7.450) ABG pCO2 53.4 H (35.0-42.0) mmHg ABG pO2 60.7 L (75.0-100.0) mmHg ABG HCO3 28.8 H (22.0-26.0) mmol/L ABG Total CO2 26.4 H (21.0-25.0) mmol/L ABG O2 Saturation 91.2 L (95.0-98.0) % ABG O2 Content 15.3 (15.0-23.0) %vol ABG Base Excess 2.8 mm/L ABG Hemoglobin 12.1 (12.0-16.0) g/dL ABG Oxyhemoglobin 90.0 % ABG Carboxyhemoglobin 0.5 (0.0-1.6) % ABG Methemoglobin 0.8 % Jeyson Test Passed O2 Delivery Device Nasal cannula Oxygen Flow Rate 3 L Sodium 144 (140-148) mmol/L Potassium 4.8 (3.6-5.2) mmol/L Chloride 108 (100-108) mmol/L Carbon Dioxide 32 (21-32) mmol/L Anion Gap 4.2 L (5.0-14.0) mmol/L BUN 33 H (7-18) mg/dL Creatinine 0.7 (0.6-1.0) mg/dL Est Cr Clr Drug Dosing 54.48 mL/min Estimated GFR (MDRD) > 60 (>60) Glucose 150 H (74-106) mg/dL Calcium 8.8 (8.5-10.1) mg/dL Med Orders - Current: Current Medications Acetaminophen (Tylenol) 650 mg PO Q4H PRN PRN Reason: Pain (Mild 1-3)/fever Albuterol (Proventil Neb Soln) 2.5 mg NEB Q4H PRN PRN Reason: Shortness Of Breath/wheezing Last Admin: 08/30/17 19:35 Dose: 2.5 mg Albuterol (Ventolin Hfa) 0 gm INH Q2H PRN PRN Reason: Shortness of Breath Amitriptyline HCl (Elavil) 20 mg PO BEDTIME PRN PRN Reason: Insomnia Amlodipine Besylate (Norvasc) 5 mg PO DAILY [facility] Last Admin: 09/02/17 08:34 Dose: 5 mg Arformoterol Tartrate (Brovana) 15 mcg INH BIDRT [facility] Last Admin: 09/02/17 07:31 Dose: 15 mcg Azithromycin (Zithromax) 500 mg PO DAILY [facility] Last Admin: 09/02/17 08:34 Dose: 500 mg Benzonatate (Tessalon Perles) 100 mg PO TID PRN PRN Reason: Cough Last Admin: 09/01/17 19:52 Dose: 100 mg Gabapentin (Neurontin) 300 mg PO BID [facility] Last Admin: 09/02/17 08:34 Dose: 300 mg Guaifenesin/Codeine Phosphate (Robitussin Ac) 10 ml PO Q4H PRN PRN Reason: Cough Ceftriaxone Sodium 2 gm/ (Sodium Chloride) 50 mls @ 100 mls/hr IV Q24H [facility] Last Admin: 09/01/17 11:39 Dose: 100 mls/hr Diltiazem HCl 125 mg/ Dextrose (/Water) 125 mls @ 5 mls/hr IV TITRATE DE; Protocol Last Admin: 09/02/17 13:39 Dose: 5 mg/hr, 5 mls/hr Sodium Chloride (Normal Saline) 1,000 mls @ 50 mls/hr IV ASDIRECTED [place] Ibuprofen (Motrin) 600 mg PO Q6H PRN PRN Reason: Pain/Fever Lorazepam (Ativan) 0.5 mg PO Q4H PRN PRN Reason: Anxiety Last Admin: 09/02/17 13:36 Dose: 0.5 mg Methylprednisolone Sodium Succinate (Solu-Medrol) 62.5 mg IVPUSH Q8H [facility] Last Admin: 09/02/17 13:27 Dose: 62.5 mg Morphine Sulfate (Morphine 10 Mg/0.5 Ml Oral Syringe) 5 mg PO Q2H PRN PRN Reason: Dyspnea Last Admin: 09/02/17 13:36 Dose: 5 mg Ondansetron HCl (Zofran Odt) 4 mg PO Q6H PRN PRN Reason: Nausea able to take PO Ondansetron HCl (Zofran) 4 mg IV Q6H PRN PRN Reason: Nausea/Vomiting Polyethylene Glycol (Miralax) 17 gm PO DAILY PRN PRN Reason: Constipation Senna/Docusate Sodium (Senna Plus) 1 tab PO BID PRN PRN Reason: Constipation Sodium Chloride (Saline Flush) 10 ml FLUSH ASDIRECTED PRN PRN Reason: Keep Vein Open Last Admin: 08/30/17 08:59 Dose: 10 ml Tiotropium [place] (Spiriva Handihaler) 18 mcg INH DAILY@0730 [facility] Last Admin: 09/02/17 07:31 Dose: 1 cap Discontinued Medications Acetaminophen (Tylenol Extra Strength) 1,000 mg PO ONETIME ONE Stop: 08/30/17 09:23 Last Admin: 08/30/17 09:33 Dose: 1,000 mg Albuterol (Proventil Neb Soln) 2.5 mg NEB ONETIME ONE Stop: 08/30/17 09:26 Last Admin: 08/30/17 09:37 Dose: 2.5 mg Albuterol/Ipratropium (Duoneb 3.0-0.5 Mg/3 Ml) 3 ml [facility] QIDRT [facility] Last Admin: 09/01/17 12:43 Dose: Not Given Amlodipine Besylate (Norvasc) 5 mg PO ONETIME ONE Stop: 08/30/17 09:19 Last Admin: 08/30/17 09:33 Dose: 5 mg Diltiazem HCl (Diltiazem) 20 mg IVPUSH ONETIME ONE Stop: 09/02/17 13:31 Last Admin: 09/02/17 13:20 Dose: 20 mg Sodium Chloride (Normal Saline) 1,000 mls @ 125 mls/hr IV ASDIRECTED [facility] Stop: 09/01/17 19:14 Last Admin: 09/01/17 11:46 Dose: 125 mls/hr Levalbuterol HCl (Xopenex) 1.25 mg [facility] QIDRT [facility] Last Admin: 09/01/17 11:54 Dose: 1.25 mg Lorazepam (Ativan) 0.25 mg PO ONETIME ONE Stop: 08/30/17 09:19 Last Admin: 08/30/17 09:35 Dose: 0.25 mg Methylprednisolone Sodium Succinate (Solu-Medrol) 40 mg IVPUSH ONETIME ONE Stop: 08/30/17 08:45 Last Admin: 08/30/17 08:57 Dose: 40 mg Pneumococcal Polyvalent Vaccine (Pneumovax 23) 0.5 ml IM .ONCE ONE Stop: 09/01/17 14:01 Last Admin: 09/01/17 13:09 Dose: Not Given - Exam Quality Assessment: Supplemental Oxygen, DVT Prophylaxis General: Alert, Oriented, Cooperative, Moderate Distress Lungs: Decreased Breath Sounds, Wheezing. No: Rales, Rhonchi, Rub Cardiovascular: No Murmurs, Irregular Rhythm, Tachycardia GI/Abdominal Exam: Soft, Non-Tender, No Organomegaly, No Distention Extremities: Non-Tender, No Pedal Edema Skin: Warm, Dry, Intact - Problem List Review Problem List Initiated/Reviewed/Updated: Yes - My Orders Last 24 Hours: My Active Orders 09/02/17 10:48 EKG 12 Lead [EK] Urgent 09/02/17 10:49 EKG Documentation Completion [RC] ASDIRECTED 09/02/17 12:58 Cardiac Monitoring [RC] .As Directed RT BiPAP/CPAP [RC] ASDIRECTED 09/02/17 13:30 Diltiazem 125 mg Dextrose 5% in Water 100 ml IV TITRATE 09/02/17 14:30 Sodium Chloride 0.9% @ 50 MLS/HR(1000ml) Sodium Chloride 0.9% [Normal Saline] 1 ,000 ml IV ASDIRECTED 09/03/17 05:00 BASIC METABOLIC PANEL,BMP [CHEM] Timed BLOOD GAS ARTERIAL [BG] Timed CBC WITH AUTO DIFF [HEME] Timed - Plan Plan:: ASSESSMENT AND PLAN - Acute exacerbation of COPD - worse since yesterday with increased shortness of breath -Continue IV steroids -antibiotics; ceftriaxone and azithromycin -Acapella -Albuterol nebs as needed -Noninvasive positive pressure ventilation -Supplement oxygen -Continue home medications -Cough suppressants Atrial fibrillation with rapid ventricular response - IV diltiazem bolus and continuous infusion - begin oral diltiazem Tobacco dependence - patient reports that she quit a few days ago. Long history of smoking. -Encourage ongoing cessation Maintenance issues - - DVT prophylaxis - mechanical - GI prophylaxis - not indicated - Nutrition - regular diet Disposition - anticipate discharge home after the hospital stay
[2017-09-02] MEDS: cefTRIAXone 2 GM in Sodium Chloride 0.9% 50 ML IV SCH (14:30)
[2017-09-02] MEDS: Diltiazem IR 30 MG Tab PO SCH ×2 (16:33→21:17)
[2017-09-02] MEDS: Sodium Chloride 0.9% 1,000 ML IV SCH (17:50)
[2017-09-03] MEDS: Diltiazem IR 30 MG Tab PO SCH (03:02)
[2017-09-03] MEDS: Morphine 10 MG/0.5 ML Oral Syringe PO PRN ×5 (03:02→22:30)
[2017-09-03] MEDS: LORazepam 0.5 MG Tab PO PRN ×6 (03:13→22:30)
[2017-09-03] MEDS: methylPREDNISolone Sodium Succinate 125 MG/2 ML SDV IVPUSH SCH ×3 (05:33→22:36)
[2017-09-03] MEDS: Tiotropium Inhaler 18 MCG Inhalation Powder Cap Kit of 5 INH SCH (07:05)
[2017-09-03] MEDS: Arformoterol 15 MCG/2 ML Neb Soln INH SCH ×2 (07:05→21:26)
[2017-09-03] MEDS: Diltiazem 180 MG Cap.CD PO SCH (09:42)
[2017-09-03] MEDS: Gabapentin 300 MG Cap PO SCH ×2 (09:42→22:30)
[2017-09-03] MEDS: Azithromycin 250 MG Tab PO SCH (09:42)
--- NOTE | 2017-09-03 09:42 | PCM.PN ---
- General Info Date of Service: 09/03/17 Subjective Update: Ms. Kendrick has been stable since transfer to the ICU yesterday. Heart rate is under better control with current management although she remains in atrial fibrillation. Respiratory status is stabilized and blood gases improved from yesterday with ongoing use of BiPAP. Off of BiPAP remains very short of breath and developes significant hypoxia. - Review of Systems General: Reports: Weakness. Denies: Fever, Chills Pulmonary: Reports: Shortness of Breath, Cough, Wheezing. Denies: Pleuritic Chest Pain, Sputum Cardiovascular: Reports: Dyspnea on Exertion. Denies: Chest Pain, Palpitations , Orthopnea, PND, Edema Gastrointestinal: Reports: No Symptoms - Patient Data Vitals - Most Recent: Last Vital Signs Temp 98.3 F 09/03/17 03:00 Pulse 101 H 09/03/17 09:00 Resp 12 09/03/17 09:00 BP 134/70 09/03/17 09:00 Pulse Ox 93 L 09/03/17 09:00 Weight - Most Recent: 139 lb 3.2 oz I&O - Last 24 Hours: Intake & Output 09/02/17 09/03/17 09/03/17 22:59 06:59 14:59 Intake Total 318 888 Output Total 300 400 Balance 18 488 Lab Results Last 24 Hours: Laboratory Results - last 24 hr 09/02/17 09/03/17 09/03/17 Range/Units 10:49 05:00 05:35 WBC 11.0 (4.5-11.0) K/uL RBC 4.08 (3.30-5.50) M/uL Hgb 11.2 L (12.0-15.0) g/dL Hct 36.6 (36.0-48.0) % MCV 90 (80-98) fL MCH 28 (27-31) pg MCHC 31 L (32-36) % Plt Count 244 (150-400) K/uL Neut % (Auto) 82 H (36-66) % Lymph % (Auto) 12 L (24-44) % [place] % (Auto) 5 (2-6) % Eos % (Auto) 0 L (2-4) % Baso % (Auto) 1 (0-1) % Puncture Site Lt radial Rt radial ABG pH 7.351 7.422 (7.350-7.450) ABG pCO2 53.4 H 46.0 H (35.0-42.0) mmHg ABG pO2 60.7 L 71.4 L (75.0-100.0) mmHg ABG HCO3 28.8 H 29.5 H (22.0-26.0) mmol/L ABG Total CO2 26.4 H 26.8 H (21.0-25.0) mmol/L ABG O2 Saturation 91.2 L 95.0 (95.0-98.0) % ABG O2 Content 15.3 14.8 L (15.0-23.0) %vol ABG Base Excess 2.8 4.8 mm/L ABG Hemoglobin 12.1 11.3 L (12.0-16.0) g/dL ABG Oxyhemoglobin 90.0 92.5 % ABG Carboxyhemoglobin 0.5 2.0 H (0.0-1.6) % ABG Methemoglobin 0.8 0.6 % Jeyson Test Passed Passed O2 Delivery Device Nasal cannula Bipap Oxygen Flow Rate 3 L Sodium (140-148) mmol/L Potassium (3.6-5.2) mmol/L Chloride (100-108) mmol/L Carbon Dioxide (21-32) mmol/L Anion Gap (5.0-14.0) mmol/L BUN (7-18) mg/dL Creatinine (0.6-1.0) mg/dL Est Cr Clr Drug Dosing mL/min Estimated GFR (MDRD) (>60) Glucose (74-106) mg/dL Calcium (8.5-10.1) mg/dL 09/03/17 Range/Units 05:35 WBC (4.5-11.0) K/uL RBC (3.30-5.50) M/uL Hgb (12.0-15.0) g/dL Hct (36.0-48.0) % MCV (80-98) fL MCH (27-31) pg MCHC (32-36) % Plt Count (150-400) K/uL Neut % (Auto) (36-66) % Lymph % (Auto) (24-44) % [place] % (Auto) (2-6) % Eos % (Auto) (2-4) % Baso % (Auto) (0-1) % Puncture Site ABG pH (7.350-7.450) ABG pCO2 (35.0-42.0) mmHg ABG pO2 (75.0-100.0) mmHg ABG HCO3 (22.0-26.0) mmol/L ABG Total CO2 (21.0-25.0) mmol/L ABG O2 Saturation (95.0-98.0) % ABG O2 Content (15.0-23.0) %vol ABG Base Excess mm/L ABG Hemoglobin (12.0-16.0) g/dL ABG Oxyhemoglobin % ABG Carboxyhemoglobin (0.0-1.6) % ABG Methemoglobin % Jeyson Test O2 Delivery Device Oxygen Flow Rate L Sodium 143 (140-148) mmol/L Potassium 4.2 (3.6-5.2) mmol/L Chloride 108 (100-108) mmol/L Carbon Dioxide 31 (21-32) mmol/L Anion Gap 3.8 L (5.0-14.0) mmol/L BUN 30 H (7-18) mg/dL Creatinine 0.6 (0.6-1.0) mg/dL Est Cr Clr Drug Dosing 63.56 mL/min Estimated GFR (MDRD) > 60 (>60) Glucose 147 H (74-106) mg/dL Calcium 8.6 (8.5-10.1) mg/dL Med Orders - Current: Current Medications Acetaminophen (Tylenol) 650 mg PO Q4H PRN PRN Reason: Pain (Mild 1-3)/fever Albuterol (Proventil Neb Soln) 2.5 mg NEB Q4H PRN PRN Reason: Shortness Of Breath/wheezing Last Admin: 08/30/17 19:35 Dose: 2.5 mg Albuterol (Ventolin Hfa) 0 gm INH Q2H PRN PRN Reason: Shortness of Breath Amitriptyline HCl (Elavil) 20 mg PO BEDTIME PRN PRN Reason: Insomnia Arformoterol Tartrate (Brovana) 15 mcg INH BIDRT [facility] Last Admin: 09/03/17 07:05 Dose: 15 mcg Azithromycin (Zithromax) 500 mg PO DAILY [facility] Last Admin: 09/02/17 08:34 Dose: 500 mg Benzonatate (Tessalon Perles) 100 mg PO TID PRN PRN Reason: Cough Last Admin: 09/01/17 19:52 Dose: 100 mg Diltiazem HCl (Cardizem Cd) 180 mg PO DAILY [facility] Gabapentin (Neurontin) 300 mg PO BID [facility] Last Admin: 09/02/17 21:17 Dose: 300 mg Guaifenesin/Codeine Phosphate (Robitussin Ac) 10 ml PO Q4H PRN PRN Reason: Cough Ceftriaxone Sodium 2 gm/ (Sodium Chloride) 50 mls @ 100 mls/hr IV Q24H [facility] Last Admin: 09/02/17 14:30 Dose: 100 mls/hr Sodium Chloride (Normal Saline) 1,000 mls @ 50 mls/hr IV ASDIRECTED [facility] Last Admin: 09/02/17 17:50 Dose: 50 mls/hr Ibuprofen (Motrin) 600 mg PO Q6H PRN PRN Reason: Pain/Fever Lorazepam (Ativan) 0.5 mg PO Q4H PRN PRN Reason: Anxiety Last Admin: 09/03/17 03:13 Dose: 0.5 mg Methylprednisolone Sodium Succinate (Solu-Medrol) 62.5 mg IVPUSH Q8H [facility] Last Admin: 09/03/17 05:33 Dose: 62.5 mg Morphine Sulfate (Morphine 10 Mg/0.5 Ml Oral Syringe) 5 mg PO Q2H PRN PRN Reason: Dyspnea Last Admin: 09/03/17 03:02 Dose: 5 mg Ondansetron HCl (Zofran Odt) 4 mg PO Q6H PRN PRN Reason: Nausea able to take PO Ondansetron HCl (Zofran) 4 mg IV Q6H PRN PRN Reason: Nausea/Vomiting Polyethylene Glycol (Miralax) 17 gm PO DAILY PRN PRN Reason: Constipation Senna/Docusate Sodium (Senna Plus) 1 tab PO BID PRN PRN Reason: Constipation Sodium Chloride (Saline Flush) 10 ml FLUSH ASDIRECTED PRN PRN Reason: Keep Vein Open Last Admin: 08/30/17 08:59 Dose: 10 ml Tiotropium [place] (Spiriva Handihaler) 18 mcg INH DAILY@0730 [facility] Last Admin: 09/03/17 07:05 Dose: 1 cap Discontinued Medications Acetaminophen (Tylenol Extra Strength) 1,000 mg PO ONETIME ONE Stop: 08/30/17 09:23 Last Admin: 08/30/17 09:33 Dose: 1,000 mg Albuterol (Proventil Neb Soln) 2.5 mg NEB ONETIME ONE Stop: 08/30/17 09:26 Last Admin: 08/30/17 09:37 Dose: 2.5 mg Albuterol/Ipratropium (Duoneb 3.0-0.5 Mg/3 Ml) 3 ml NEB QIDRT [facility] Last Admin: 09/01/17 12:43 Dose: Not Given Amlodipine Besylate (Norvasc) 5 mg PO ONETIME ONE Stop: 08/30/17 09:19 Last Admin: 08/30/17 09:33 Dose: 5 mg Amlodipine Besylate (Norvasc) 5 mg PO DAILY [facility] Last Admin: 09/02/17 08:34 Dose: 5 mg Diltiazem HCl (Diltiazem) 20 mg IVPUSH ONETIME ONE Stop: 09/02/17 13:31 Last Admin: 09/02/17 13:20 Dose: 20 mg Diltiazem HCl (Cardizem) 30 mg PO Q6HR [facility] Last Admin: 09/03/17 03:02 Dose: 30 mg Sodium Chloride (Normal Saline) 1,000 mls @ 125 mls/hr IV ASDIRECTED [facility] Stop: 09/01/17 19:14 Last Admin: 09/01/17 11:46 Dose: 125 mls/hr Diltiazem HCl 125 mg/ Dextrose (/Water) 125 mls @ 5 mls/hr IV TITRATE [facility]; Protocol Last Admin: 09/02/17 13:39 Dose: 5 mg/hr, 5 mls/hr Levalbuterol HCl (Xopenex) 1.25 mg NEB QIDRT [facility] Last Admin: 09/01/17 11:54 Dose: 1.25 mg Lorazepam (Ativan) 0.25 mg PO ONETIME ONE Stop: 08/30/17 09:19 Last Admin: 08/30/17 09:35 Dose: 0.25 mg Methylprednisolone Sodium Succinate (Solu-Medrol) 40 mg IVPUSH ONETIME ONE Stop: 08/30/17 08:45 Last Admin: 08/30/17 08:57 Dose: 40 mg Pneumococcal Polyvalent Vaccine (Pneumovax 23) 0.5 ml IM .ONCE ONE Stop: 09/01/17 14:01 Last Admin: 09/01/17 13:09 Dose: Not Given - Exam Quality Assessment: Supplemental Oxygen, DVT Prophylaxis General: Alert, Oriented, Cooperative, Moderate Distress Lungs: Decreased Breath Sounds, Rhonchi, Wheezing. No: Rales, Rub, Stridor Cardiovascular: Regular Rate, No Murmurs, Irregular Rhythm GI/Abdominal Exam: Soft, Non-Tender, No Organomegaly, No Distention Extremities: Non-Tender, No Pedal Edema Skin: Warm, Dry, Intact - Problem List Review Problem List Initiated/Reviewed/Updated: Yes - My Orders Last 24 Hours: My Active Orders 09/02/17 10:48 EKG 12 Lead [EK] Urgent 09/02/17 10:49 EKG Documentation Completion [RC] ASDIRECTED 09/02/17 12:58 Cardiac Monitoring [RC] Q6H RT BiPAP/CPAP [RC] ASDIRECTED 09/02/17 14:30 Sodium Chloride 0.9% [Normal Saline] 1,000 ml IV ASDIRECTED 09/03/17 09:00 Diltiazem [Cardizem CD] 180 mg PO DAILY 09/04/17 05:00 BASIC METABOLIC PANEL,BMP [CHEM] Timed BLOOD GAS ARTERIAL [BG] Timed - Plan Plan:: ASSESSMENT AND PLAN - Acute exacerbation of COPD - stable since transfer to the intensive care unit, continues to require use of noninvasive positive pressure ventilation. Developed severe shortness of breath and hypoxia when placed on nasal cannula. -Continue IV steroids -antibiotics; ceftriaxone and azithromycin -Acapella -Albuterol nebs as needed -Noninvasive positive pressure ventilation -Supplement oxygen -Continue home medications -Cough suppressants Atrial fibrillation with rapid ventricular response -Diltiazem CD 180 mg by mouth daily Tobacco dependence - patient reports that she quit a few days ago. Long history of smoking. -Encourage ongoing cessation Maintenance issues - - DVT prophylaxis - mechanical - GI prophylaxis - not indicated - Nutrition - regular diet Disposition - anticipate discharge home after the hospital stay
[2017-09-03] MEDS: cefTRIAXone 2 GM in Sodium Chloride 0.9% 50 ML IV SCH (11:27)
[2017-09-03] MEDS: Sodium Chloride 0.9% 1,000 ML IV SCH (14:16)
[2017-09-04] MEDS: LORazepam 0.5 MG Tab PO PRN ×2 (02:12→07:37)
[2017-09-04] MEDS: Morphine 10 MG/0.5 ML Oral Syringe PO PRN ×5 (02:12→17:09)
[2017-09-04] MEDS: methylPREDNISolone Sodium Succinate 125 MG/2 ML SDV IVPUSH SCH (06:08)
[2017-09-04] MEDS: Tiotropium Inhaler 18 MCG Inhalation Powder Cap Kit of 5 INH SCH (07:17)
[2017-09-04] MEDS: Albuterol 0.083% 2.5 MG/3 ML Neb Soln NEB PRN (07:19)
[2017-09-04] MEDS: Diltiazem 180 MG Cap.CD PO SCH (07:42)
[2017-09-04] MEDS: Azithromycin 250 MG Tab PO SCH ×2 (07:43→10:48)
[2017-09-04] MEDS: Gabapentin 300 MG Cap PO SCH ×3 (07:43→20:21)
[2017-09-04] MEDS ORDERED: Potassium Chloride 20 MEQ Tab.ER PO ONE (09:00)
[2017-09-04] MEDS: Sodium Chloride 0.9% 1,000 ML IV SCH (09:08)
[2017-09-04] MEDS ORDERED: Diltiazem IR 30 MG Tab PO ONE (09:30)
--- NOTE | 2017-09-04 09:34 | PCM.PN ---
- General Info Date of Service: 09/04/17 Subjective Update: Ms. Kendrick has continued to experience significant respiratory compromise and required ongoing use of noninvasive positive pressure ventilation. She has had intermittent episodes of panic attack with significant desaturation and elevation in heart rate. She has been receiving intermittent morphine and lorazepam, which do seem to help. She remains in atrial fibrillation, rate has gone up since she's been off of the IV diltiazem. She has been on oral diltiazem plan to start low-dose beta kamron today. - Review of Systems General: Reports: Weakness. Denies: Fever, Chills Pulmonary: Reports: Shortness of Breath, Cough, Wheezing. Denies: Pleuritic Chest Pain, Sputum, Hemoptysis Cardiovascular: Reports: Dyspnea on Exertion. Denies: Chest Pain, Palpitations , Orthopnea, PND, Edema, Lightheadedness Gastrointestinal: Reports: No Symptoms - Patient Data Vitals - Most Recent: Last Vital Signs Temp 98.1 F 09/04/17 09:00 Pulse 127 H 09/04/17 09:00 Resp 11 L 09/04/17 09:00 BP 197/73 H 09/04/17 09:00 Pulse Ox 87 L 09/04/17 09:00 Weight - Most Recent: 139 lb 3.2 oz I&O - Last 24 Hours: Intake & Output 09/03/17 09/04/17 09/04/17 22:59 06:59 14:59 Intake Total 818 623 Output Total 400 850 500 Balance 418 -227 -500 Lab Results Last 24 Hours: Laboratory Results - last 24 hr 09/04/17 09/04/17 Range/Units 05:00 05:45 Puncture Site Lt radial ABG pH 7.454 H (7.350-7.450) ABG pCO2 43.4 H (35.0-42.0) mmHg ABG pO2 68.3 L (75.0-100.0) mmHg ABG HCO3 30.0 H (22.0-26.0) mmol/L ABG Total CO2 26.8 H (21.0-25.0) mmol/L ABG O2 Saturation 94.3 L (95.0-98.0) % ABG O2 Content 15.7 (15.0-23.0) %vol ABG Base Excess 5.8 mm/L ABG Hemoglobin 12.0 (12.0-16.0) g/dL ABG Oxyhemoglobin 92.5 % ABG Carboxyhemoglobin 1.2 (0.0-1.6) % ABG Methemoglobin 0.7 % Jeyson Test Passed O2 Delivery Device Bipap Oxygen Flow Rate L Sodium 146 (140-148) mmol/L Potassium 3.5 L (3.6-5.2) mmol/L Chloride 108 (100-108) mmol/L Carbon Dioxide 30 (21-32) mmol/L Anion Gap 11.5 (5.0-14.0) mmol/L BUN 21 H (7-18) mg/dL Creatinine 0.5 L (0.6-1.0) mg/dL Est Cr Clr Drug Dosing 76.28 mL/min Estimated GFR (MDRD) > 60 (>60) Glucose 141 H (74-106) mg/dL Calcium 8.5 (8.5-10.1) mg/dL Med Orders - Current: Current Medications Acetaminophen (Tylenol) 650 mg PO Q4H PRN PRN Reason: Pain (Mild 1-3)/fever Albuterol (Proventil Neb Soln) 2.5 mg NEB Q4H PRN PRN Reason: Shortness Of Breath/wheezing Last Admin: 09/04/17 07:19 Dose: 2.5 mg Albuterol (Ventolin Hfa) 0 gm INH Q2H PRN PRN Reason: Shortness of Breath Amitriptyline HCl (Elavil) 20 mg PO BEDTIME PRN PRN Reason: Insomnia Arformoterol Tartrate (Brovana) 15 mcg INH BIDRT [facility] Last Admin: 09/03/17 21:26 Dose: 15 mcg Azithromycin (Zithromax) 500 mg PO DAILY [facility] Last Admin: 09/04/17 07:43 Dose: 500 mg Benzonatate (Tessalon Perles) 100 mg PO TID PRN PRN Reason: Cough Last Admin: 09/01/17 19:52 Dose: 100 mg Diltiazem HCl (Cardizem Cd) 240 mg PO DAILY [facility] Diltiazem HCl (Cardizem) 60 mg PO ONETIME ONE Stop: 09/04/17 09:31 Gabapentin (Neurontin) 300 mg PO BID [facility] Last Admin: 09/04/17 07:43 Dose: 300 mg Guaifenesin/Codeine Phosphate (Robitussin Ac) 10 ml PO Q4H PRN PRN Reason: Cough Ceftriaxone Sodium 2 gm/ (Sodium Chloride) 50 mls @ 100 mls/hr IV Q24H [facility] Last Admin: 09/03/17 11:27 Dose: 100 mls/hr Sodium Chloride (Normal Saline) 1,000 mls @ 50 mls/hr IV ASDIRECTED [facility] Last Admin: 09/04/17 09:08 Dose: 50 mls/hr Ibuprofen (Motrin) 600 mg PO Q6H PRN PRN Reason: Pain/Fever Lorazepam (Ativan) 0.5 mg PO Q2H PRN PRN Reason: Anxiety Last Admin: 09/04/17 07:37 Dose: 0.5 mg Methylprednisolone Sodium Succinate (Solu-Medrol) 40 mg IVPUSH Q8H [facility] Metoprolol Tartrate (Lopressor) 25 mg PO Q6H [facility] Morphine Sulfate (Morphine 10 Mg/0.5 Ml Oral Syringe) 5 mg PO Q2H PRN PRN Reason: Dyspnea Last Admin: 09/04/17 07:37 Dose: 5 mg Ondansetron HCl (Zofran Odt) 4 mg PO Q6H PRN PRN Reason: Nausea able to take PO Ondansetron HCl (Zofran) 4 mg IV Q6H PRN PRN Reason: Nausea/Vomiting Polyethylene Glycol (Miralax) 17 gm PO DAILY PRN PRN Reason: Constipation Senna/Docusate Sodium (Senna Plus) 1 tab PO BID PRN PRN Reason: Constipation Sodium Chloride (Saline Flush) 10 ml FLUSH ASDIRECTED PRN PRN Reason: Keep Vein Open Last Admin: 08/30/17 08:59 Dose: 10 ml Tiotropium [place] (Spiriva Handihaler) 18 mcg INH DAILY@0730 [facility] Last Admin: 09/04/17 07:17 Dose: 1 cap Discontinued Medications Acetaminophen (Tylenol Extra Strength) 1,000 mg PO ONETIME ONE Stop: 08/30/17 09:23 Last Admin: 08/30/17 09:33 Dose: 1,000 mg Albuterol (Proventil Neb Soln) 2.5 mg NEB ONETIME ONE Stop: 08/30/17 09:26 Last Admin: 08/30/17 09:37 Dose: 2.5 mg Albuterol/Ipratropium (Duoneb 3.0-0.5 Mg/3 Ml) 3 ml NEB QIDRT [facility] Last Admin: 09/01/17 12:43 Dose: Not Given Amlodipine Besylate (Norvasc) 5 mg PO ONETIME ONE Stop: 08/30/17 09:19 Last Admin: 08/30/17 09:33 Dose: 5 mg Amlodipine Besylate (Norvasc) 5 mg PO DAILY [facility] Last Admin: 09/02/17 08:34 Dose: 5 mg Diltiazem HCl (Diltiazem) 20 mg IVPUSH ONETIME ONE Stop: 09/02/17 13:31 Last Admin: 09/02/17 13:20 Dose: 20 mg Diltiazem HCl (Cardizem) 30 mg PO Q6HR [facility] Last Admin: 09/03/17 03:02 Dose: 30 mg Diltiazem HCl (Cardizem Cd) 180 mg PO DAILY [facility] Last Admin: 09/04/17 07:42 Dose: 180 mg Sodium Chloride (Normal Saline) 1,000 mls @ 125 mls/hr IV ASDIRECTED [facility] Stop: 09/01/17 19:14 Last Admin: 09/01/17 11:46 Dose: 125 mls/hr Diltiazem HCl 125 mg/ Dextrose (/Water) 125 mls @ 5 mls/hr IV TITRATE [facility]; Protocol Last Admin: 09/02/17 13:39 Dose: 5 mg/hr, 5 mls/hr Levalbuterol HCl (Xopenex) 1.25 mg NEB QIDRT [facility] Last Admin: 09/01/17 11:54 Dose: 1.25 mg Lorazepam (Ativan) 0.25 mg PO ONETIME ONE Stop: 08/30/17 09:19 Last Admin: 08/30/17 09:35 Dose: 0.25 mg Lorazepam (Ativan) 0.5 mg PO Q4H PRN PRN Reason: Anxiety Last Admin: 09/03/17 13:47 Dose: 0.5 mg Methylprednisolone Sodium Succinate (Solu-Medrol) 40 mg IVPUSH ONETIME ONE Stop: 08/30/17 08:45 Last Admin: 08/30/17 08:57 Dose: 40 mg Methylprednisolone Sodium Succinate (Solu-Medrol) 62.5 mg IVPUSH Q8H [facility] Last Admin: 09/04/17 06:08 Dose: 62.5 mg Pneumococcal Polyvalent Vaccine (Pneumovax 23) 0.5 ml IM .ONCE ONE Stop: 09/01/17 14:01 Last Admin: 09/01/17 13:09 Dose: Not Given Potassium Chloride (Klor-Con M20) 40 meq PO ONETIME ONE Stop: 09/04/17 09:01 - Exam Quality Assessment: Supplemental Oxygen, DVT Prophylaxis General: Alert, Oriented, Cooperative, Moderate Distress Lungs: Decreased Breath Sounds, Rhonchi, Wheezing. No: Crackles, Rales, Rub Cardiovascular: No Murmurs, Irregular Rhythm, Tachycardia GI/Abdominal Exam: Soft, Non-Tender, No Organomegaly, No Distention Extremities: Non-Tender, No Pedal Edema Skin: Warm, Dry, Intact - Problem List Review Problem List Initiated/Reviewed/Updated: Yes - My Orders Last 24 Hours: My Active Orders 09/03/17 15:57 LORazepam [Ativan] 0.5 mg PO Q2H PRN 09/04/17 09:00 Diltiazem [Cardizem CD] 240 mg PO DAILY 09/04/17 09:22 Diltiazem [Cardizem SR] 60 mg PO ONETIME ONE 09/04/17 09:30 methylPREDNISolone Sod Succ [Solu-MEDROL] 40 mg IVPUSH Q8H 09/04/17 10:00 Metoprolol Tartrate [Lopressor] 25 mg PO Q6H 09/05/17 05:00 BASIC METABOLIC PANEL,BMP [CHEM] Timed CBC WITH AUTO DIFF [HEME] Timed - Plan Plan:: ASSESSMENT AND PLAN - Acute exacerbation of COPD - stable since transfer to the intensive care unit, continues to require use of noninvasive positive pressure ventilation. Complicated by intermittent panic attacks, triggered by shortness of breath and hypoxia -Decrease Solu-Medrol to 40 mg IV every 8 hours -antibiotics; ceftriaxone and azithromycin -Acapella -Albuterol nebs as needed -Noninvasive positive pressure ventilation -Supplement oxygen -Continue home medications -Cough suppressants Atrial fibrillation with rapid ventricular response-rate has been increased over the past 24 hours -Metoprolol 25 mg by mouth every 6 hours -Diltiazem CD 240 mg by mouth daily Tobacco dependence - patient reports that she quit a few days ago. Long history of smoking. -Encourage ongoing cessation Maintenance issues - - DVT prophylaxis - mechanical - GI prophylaxis - not indicated - Nutrition - regular diet Disposition - anticipate discharge home after the hospital stay
[2017-09-04] MEDS: Diltiazem 120 MG Cap.CD PO SCH (10:45)
[2017-09-04] MEDS: Metoprolol Tartrate 25 MG Tab PO SCH ×3 (10:51→22:35)
[2017-09-04] MEDS: Arformoterol 15 MCG/2 ML Neb Soln INH SCH ×2 (11:02→20:23)
[2017-09-04] MEDS: cefTRIAXone 2 GM in Sodium Chloride 0.9% 50 ML IV SCH (11:44)
[2017-09-04] MEDS: methylPREDNISolone Sodium Succinate 40 MG/1 ML SDV IVPUSH SCH ×2 (14:05→22:35)
[2017-09-05] MEDS: Ibuprofen 600 MG Tab PO PRN (00:53)
[2017-09-05] MEDS: Morphine 10 MG/0.5 ML Oral Syringe PO PRN ×4 (00:57→21:30)
[2017-09-05] MEDS: Albuterol 0.083% 2.5 MG/3 ML Neb Soln NEB PRN ×2 (00:58→16:44)
[2017-09-05] MEDS: Metoprolol Tartrate 25 MG Tab PO SCH ×4 (04:27→21:07)
[2017-09-05] MEDS: Sodium Chloride 0.9% 1,000 ML IV SCH (05:48)
[2017-09-05] MEDS: methylPREDNISolone Sodium Succinate 40 MG/1 ML SDV IVPUSH SCH ×2 (05:52→17:08)
[2017-09-05] MEDS ORDERED: Naloxone 0.4 MG/ML SDV IV PRN (07:14)
[2017-09-05] MEDS ORDERED: HYDROmorphone/Normal Saline 15 MG/30 ML PCA IV PRN (07:14)
[2017-09-05] MEDS: Arformoterol 15 MCG/2 ML Neb Soln INH SCH ×2 (07:24→20:55)
[2017-09-05] MEDS: Tiotropium Inhaler 18 MCG Inhalation Powder Cap Kit of 5 INH SCH (07:24)
[2017-09-05] MEDS: Azithromycin 250 MG Tab PO SCH (08:13)
[2017-09-05] MEDS: Gabapentin 300 MG Cap PO SCH ×2 (08:13→20:56)
[2017-09-05] MEDS: Diltiazem 120 MG Cap.CD PO SCH (08:13)
--- NOTE | 2017-09-05 09:17 | PCM.PN ---
- General Info Date of Service: 09/05/17 Subjective Update: Ms. Kendrick has been stable since yesterday and shown some improvement in her respiratory status. This morning she has adequate saturations on nasal cannula. She is somewhat lethargic and weak. Denies significant shortness of breath and reports that her cough has improved. Functional Status: Reports: Urinating - Review of Systems General: Reports: Weakness. Denies: Fever, Chills Pulmonary: Reports: Shortness of Breath, Cough, Wheezing. Denies: Pleuritic Chest Pain, Sputum, Hemoptysis Cardiovascular: Reports: Dyspnea on Exertion. Denies: Chest Pain, Palpitations , Orthopnea, PND, Edema Gastrointestinal: Reports: No Symptoms - Patient Data Vitals - Most Recent: Last Vital Signs Temp 97.9 F 09/05/17 08:00 Pulse 99 09/05/17 08:13 Resp 12 09/05/17 08:00 BP 160/76 H 09/05/17 08:13 Pulse Ox 92 L 09/05/17 08:00 Weight - Most Recent: 139 lb 3.2 oz I&O - Last 24 Hours: Intake & Output 09/04/17 09/05/17 09/05/17 22:59 06:59 14:59 Intake Total 917 30 Output Total 700 400 Balance 217 -370 Lab Results Last 24 Hours: Laboratory Results - last 24 hr 09/05/17 09/05/17 Range/Units 04:45 04:45 WBC 11.2 H (4.5-11.0) K/uL RBC 4.44 (3.30-5.50) M/uL Hgb 12.3 (12.0-15.0) g/dL Hct 39.3 (36.0-48.0) % MCV 89 (80-98) fL MCH 28 (27-31) pg MCHC 31 L (32-36) % Plt Count 282 (150-400) K/uL Neut % (Auto) 87 H (36-66) % Lymph % (Auto) 7 L (24-44) % Bee % (Auto) 6 (2-6) % Eos % (Auto) 0 L (2-4) % Baso % (Auto) 0 (0-1) % Sodium 148 (140-148) mmol/L Potassium 3.8 (3.6-5.2) mmol/L Chloride 112 H (100-108) mmol/L Carbon Dioxide 30 (21-32) mmol/L Anion Gap 9.8 (5.0-14.0) mmol/L BUN 28 H (7-18) mg/dL Creatinine 0.5 L (0.6-1.0) mg/dL Est Cr Clr Drug Dosing 76.28 mL/min Estimated GFR (MDRD) > 60 (>60) Glucose 143 H (74-106) mg/dL Calcium 8.8 (8.5-10.1) mg/dL Med Orders - Current: Current Medications Acetaminophen (Tylenol) 650 mg PO Q4H PRN PRN Reason: Pain (Mild 1-3)/fever Albuterol (Proventil Neb Soln) 2.5 mg NEB Q4H PRN PRN Reason: Shortness Of Breath/wheezing Last Admin: 09/05/17 00:58 Dose: 2.5 mg Albuterol (Ventolin Hfa) 0 gm INH Q2H PRN PRN Reason: Shortness of Breath Amitriptyline HCl (Elavil) 20 mg PO BEDTIME PRN PRN Reason: Insomnia Arformoterol Tartrate (Brovana) 15 mcg INH BIDRT [facility] Last Admin: 09/05/17 07:24 Dose: 15 mcg Azithromycin (Zithromax) 500 mg PO DAILY [facility] Last Admin: 09/05/17 08:13 Dose: 500 mg Benzonatate (Tessalon Perles) 100 mg PO TID PRN PRN Reason: Cough Last Admin: 09/01/17 19:52 Dose: 100 mg Diltiazem HCl (Cardizem Cd) 240 mg PO DAILY [facility] Last Admin: 09/05/17 08:13 Dose: 240 mg Gabapentin (Neurontin) 300 mg PO BID [facility] Last Admin: 09/05/17 08:13 Dose: 300 mg Guaifenesin/Codeine Phosphate (Robitussin Ac) 10 ml PO Q4H PRN PRN Reason: Cough Ceftriaxone Sodium 2 gm/ (Sodium Chloride) 50 mls @ 100 mls/hr IV Q24H [facility] Last Admin: 09/04/17 11:44 Dose: 100 mls/hr Sodium Chloride (Normal Saline) 1,000 mls @ 50 mls/hr IV ASDIRECTED [facility] Last Admin: 09/05/17 05:48 Dose: 50 mls/hr Ibuprofen (Motrin) 600 mg PO Q6H PRN PRN Reason: Pain/Fever Last Admin: 09/05/17 00:53 Dose: 600 mg Lorazepam (Ativan) 0.5 mg PO Q2H PRN PRN Reason: Anxiety Last Admin: 09/04/17 07:37 Dose: 0.5 mg Methylprednisolone Sodium Succinate (Solu-Medrol) 40 mg IVPUSH Q8H [facility] Last Admin: 09/05/17 05:52 Dose: 40 mg Metoprolol Tartrate (Lopressor) 25 mg PO Q6H [facility] Last Admin: 09/05/17 04:27 Dose: 25 mg Morphine Sulfate (Morphine 10 Mg/0.5 Ml Oral Syringe) 5 mg PO Q2H PRN PRN Reason: Dyspnea Last Admin: 09/05/17 04:27 Dose: 5 mg Ondansetron HCl (Zofran Odt) 4 mg PO Q6H PRN PRN Reason: Nausea able to take PO Ondansetron HCl (Zofran) 4 mg IV Q6H PRN PRN Reason: Nausea/Vomiting Polyethylene Glycol (Miralax) 17 gm PO DAILY PRN PRN Reason: Constipation Senna/Docusate Sodium (Senna Plus) 1 tab PO BID PRN PRN Reason: Constipation Sodium Chloride (Saline Flush) 10 ml FLUSH ASDIRECTED PRN PRN Reason: Keep Vein Open Last Admin: 08/30/17 08:59 Dose: 10 ml Tiotropium [place] (Spiriva Handihaler) 18 mcg INH DAILY@0730 [facility] Last Admin: 09/05/17 07:24 Dose: 1 cap Discontinued Medications Acetaminophen (Tylenol Extra Strength) 1,000 mg PO ONETIME ONE Stop: 08/30/17 09:23 Last Admin: 08/30/17 09:33 Dose: 1,000 mg Albuterol (Proventil Neb Soln) 2.5 mg NEB ONETIME ONE Stop: 08/30/17 09:26 Last Admin: 08/30/17 09:37 Dose: 2.5 mg Albuterol/Ipratropium (Duoneb 3.0-0.5 Mg/3 Ml) 3 ml NEB QIDRT [facility] Last Admin: 09/01/17 12:43 Dose: Not Given Amlodipine Besylate (Norvasc) 5 mg PO ONETIME ONE Stop: 08/30/17 09:19 Last Admin: 08/30/17 09:33 Dose: 5 mg Amlodipine Besylate (Norvasc) 5 mg PO DAILY [facility] Last Admin: 09/02/17 08:34 Dose: 5 mg Diltiazem HCl (Diltiazem) 20 mg IVPUSH ONETIME ONE Stop: 09/02/17 13:31 Last Admin: 09/02/17 13:20 Dose: 20 mg Diltiazem HCl (Cardizem) 30 mg PO Q6HR [facility] Last Admin: 09/03/17 03:02 Dose: 30 mg Diltiazem HCl (Cardizem Cd) 180 mg PO DAILY [facility] Last Admin: 09/04/17 07:42 Dose: 180 mg Diltiazem HCl (Cardizem) 60 mg PO ONETIME ONE Stop: 09/04/17 09:31 Last Admin: 09/04/17 10:53 Dose: 60 mg Sodium Chloride (Normal Saline) 1,000 mls @ 125 mls/hr IV ASDIRECTED [facility] Stop: 09/01/17 19:14 Last Admin: 09/01/17 11:46 Dose: 125 mls/hr Diltiazem HCl 125 mg/ Dextrose (/Water) 125 mls @ 5 mls/hr IV TITRATE [facility]; Protocol Last Admin: 09/02/17 13:39 Dose: 5 mg/hr, 5 mls/hr Levalbuterol HCl (Xopenex) 1.25 mg NEB QIDRT [facility] Last Admin: 09/01/17 11:54 Dose: 1.25 mg Lorazepam (Ativan) 0.25 mg PO ONETIME ONE Stop: 08/30/17 09:19 Last Admin: 08/30/17 09:35 Dose: 0.25 mg Lorazepam (Ativan) 0.5 mg PO Q4H PRN PRN Reason: Anxiety Last Admin: 09/03/17 13:47 Dose: 0.5 mg Methylprednisolone Sodium Succinate (Solu-Medrol) 40 mg IVPUSH ONETIME ONE Stop: 08/30/17 08:45 Last Admin: 08/30/17 08:57 Dose: 40 mg Methylprednisolone Sodium Succinate (Solu-Medrol) 62.5 mg IVPUSH Q8H [facility] Last Admin: 09/04/17 06:08 Dose: 62.5 mg Pneumococcal Polyvalent Vaccine (Pneumovax 23) 0.5 ml IM .ONCE ONE Stop: 09/01/17 14:01 Last Admin: 09/01/17 13:09 Dose: Not Given Potassium Chloride (Klor-Con M20) 40 meq PO ONETIME ONE Stop: 09/04/17 09:01 Last Admin: 09/04/17 10:53 Dose: 40 meq - Exam Quality Assessment: Supplemental Oxygen, DVT Prophylaxis General: Alert, Oriented, Cooperative, Mild Distress Lungs: Decreased Breath Sounds, Wheezing. No: Rales, Rhonchi, Rub, Stridor Cardiovascular: Regular Rate, Irregular Rhythm. No: Bradycardia, Murmurs GI/Abdominal Exam: Soft, Non-Tender, No Organomegaly, No Distention Extremities: Non-Tender, No Pedal Edema Skin: Warm, Dry, Intact - Problem List Review Problem List Initiated/Reviewed/Updated: Yes - My Orders Last 24 Hours: My Active Orders 09/04/17 09:00 Diltiazem [Cardizem CD] 240 mg PO DAILY 09/04/17 10:00 Metoprolol Tartrate [Lopressor] 25 mg PO Q6H 09/04/17 14:00 methylPREDNISolone Sod Succ [Solu-MEDROL] 40 mg IVPUSH Q8H 09/05/17 09:09 BLOOD GAS ARTERIAL [BG] Stat - Plan Plan:: ASSESSMENT AND PLAN - Acute exacerbation of COPD - currently on nasal cannula and denies significant shortness of breath, cough is improved. Somewhat lethargic we'll need to obtain arterial blood gases this morning to rule out CO2 retention. Arterial blood gases now- -Decrease Solu-Medrol to 40 mg IV every 12 hours -antibiotics; ceftriaxone and azithromycin -Acapella -Albuterol nebs as needed -Noninvasive positive pressure ventilation as needed -Supplement oxygen -Continue home medications -Cough suppressants Atrial fibrillation with rapid ventricular response-rate control has improved over the past 24 hours -Metoprolol 25 mg by mouth every 6 hours -Diltiazem CD 240 mg by mouth daily Tobacco dependence - patient reports that she quit a few days ago. Long history of smoking. -Encourage ongoing cessation Maintenance issues - - DVT prophylaxis - mechanical - GI prophylaxis - not indicated - Nutrition - regular diet Disposition - anticipate discharge home after the hospital stay
[2017-09-05] MEDS: cefTRIAXone 2 GM in Sodium Chloride 0.9% 50 ML IV SCH (12:39)
[2017-09-05] MEDS: Ondansetron 4 MG Tab.DIS PO PRN (18:18)
[2017-09-06] MEDS: Ibuprofen 600 MG Tab PO PRN (00:02)
[2017-09-06] MEDS: Codeine/guaiFENesin 100mg-10 MG/5 ML Syrup 10 ML Cup PO PRN (00:03)
[2017-09-06] MEDS: Metoprolol Tartrate 25 MG Tab PO SCH ×4 (05:05→21:00)
[2017-09-06] MEDS: methylPREDNISolone Sodium Succinate 40 MG/1 ML SDV IVPUSH SCH (05:20)
[2017-09-06] MEDS: Tiotropium Inhaler 18 MCG Inhalation Powder Cap Kit of 5 INH SCH (07:12)
[2017-09-06] MEDS: Arformoterol 15 MCG/2 ML Neb Soln INH SCH ×2 (07:12→21:00)
[2017-09-06] MEDS: Azithromycin 250 MG Tab PO SCH (09:40)
[2017-09-06] MEDS: Gabapentin 300 MG Cap PO SCH ×2 (09:40→21:01)
[2017-09-06] MEDS: Diltiazem 120 MG Cap.CD PO SCH (09:41)
--- NOTE | 2017-09-06 10:54 | PCM.PN ---
- General Info Date of Service: 09/06/17 Subjective Update: This patient has improved significantly over the past 24 hours with less shortness of breath, she is also cleared and is more alert and interactive. Still continues to experience shortness of breath with activity but nowhere near as severe as it had been over the past few days. - Review of Systems General: Reports: Weakness. Denies: Fever, Chills Pulmonary: Reports: Shortness of Breath. Denies: Cough, Sputum, Wheezing Cardiovascular: Reports: Dyspnea on Exertion. Denies: Chest Pain, Palpitations , Orthopnea, PND, Edema Gastrointestinal: Reports: No Symptoms - Patient Data Vitals - Most Recent: Last Vital Signs Temp 97.3 F 09/06/17 08:00 Pulse 100 09/06/17 09:41 Resp 17 09/06/17 08:00 BP 139/76 09/06/17 09:41 Pulse Ox 90 L 09/06/17 08:00 Weight - Most Recent: 139 lb 3.2 oz I&O - Last 24 Hours: Intake & Output 09/05/17 09/06/17 09/06/17 22:59 06:59 14:59 Intake Total 1861 670 Output Total 500 500 Balance 1361 670 -500 Med Orders - Current: Current Medications Acetaminophen (Tylenol) 650 mg PO Q4H PRN PRN Reason: Pain (Mild 1-3)/fever Albuterol (Proventil Neb Soln) 2.5 mg NEB Q4H PRN PRN Reason: Shortness Of Breath/wheezing Last Admin: 09/05/17 16:44 Dose: 2.5 mg Albuterol (Ventolin Hfa) 0 gm INH Q2H PRN PRN Reason: Shortness of Breath Amitriptyline HCl (Elavil) 20 mg PO BEDTIME PRN PRN Reason: Insomnia Last Admin: 09/06/17 00:03 Dose: 20 mg Arformoterol Tartrate (Brovana) 15 mcg INH BIDRT [facility] Last Admin: 09/06/17 07:12 Dose: 15 mcg Benzonatate (Tessalon Perles) 100 mg PO TID PRN PRN Reason: Cough Last Admin: 09/01/17 19:52 Dose: 100 mg Cefdinir (Omnicef) 300 mg PO BID [facility] Diltiazem HCl (Cardizem Cd) 240 mg PO DAILY [facility] Last Admin: 09/06/17 09:41 Dose: 240 mg Gabapentin (Neurontin) 300 mg PO BID [facility] Last Admin: 09/06/17 09:40 Dose: 300 mg Guaifenesin/Codeine Phosphate (Robitussin Ac) 10 ml PO Q4H PRN PRN Reason: Cough Last Admin: 09/06/17 00:03 Dose: 10 ml Ibuprofen (Motrin) 600 mg PO Q6H PRN PRN Reason: Pain/Fever Last Admin: 09/06/17 00:02 Dose: 600 mg Lorazepam (Ativan) 0.5 mg PO Q2H PRN PRN Reason: Anxiety Last Admin: 09/04/17 07:37 Dose: 0.5 mg Metoprolol Tartrate (Lopressor) 25 mg PO Q6H [facility] Last Admin: 09/06/17 09:40 Dose: 25 mg Morphine Sulfate (Morphine 10 Mg/0.5 Ml Oral Syringe) 5 mg PO Q2H PRN PRN Reason: Dyspnea Last Admin: 09/05/17 21:30 Dose: 5 mg Ondansetron HCl (Zofran Odt) 4 mg PO Q6H PRN PRN Reason: Nausea able to take PO Last Admin: 09/05/17 18:18 Dose: 4 mg Ondansetron HCl (Zofran) 4 mg IV Q6H PRN PRN Reason: Nausea/Vomiting Polyethylene Glycol (Miralax) 17 gm PO DAILY PRN PRN Reason: Constipation Prednisone (Prednisone) 40 mg PO WITHBREAKFAST [facility] Senna/Docusate Sodium (Senna Plus) 1 tab PO BID PRN PRN Reason: Constipation Sodium Chloride (Saline Flush) 10 ml FLUSH ASDIRECTED PRN PRN Reason: Keep Vein Open Last Admin: 08/30/17 08:59 Dose: 10 ml Tiotropium [place] (Spiriva Handihaler) 18 mcg INH DAILY@0730 [facility] Last Admin: 09/06/17 07:12 Dose: 1 cap Discontinued Medications Acetaminophen (Tylenol Extra Strength) 1,000 mg PO ONETIME ONE Stop: 08/30/17 09:23 Last Admin: 08/30/17 09:33 Dose: 1,000 mg Albuterol (Proventil Neb Soln) 2.5 mg NEB ONETIME ONE Stop: 08/30/17 09:26 Last Admin: 08/30/17 09:37 Dose: 2.5 mg Albuterol/Ipratropium (Duoneb 3.0-0.5 Mg/3 Ml) 3 ml NEB QIDRT [facility] Last Admin: 09/01/17 12:43 Dose: Not Given Amlodipine Besylate (Norvasc) 5 mg PO ONETIME ONE Stop: 08/30/17 09:19 Last Admin: 08/30/17 09:33 Dose: 5 mg Amlodipine Besylate (Norvasc) 5 mg PO DAILY [facility] Last Admin: 09/02/17 08:34 Dose: 5 mg Azithromycin (Zithromax) 500 mg PO DAILY [facility] Last Admin: 09/06/17 09:40 Dose: 500 mg Diltiazem HCl (Diltiazem) 20 mg IVPUSH ONETIME ONE Stop: 09/02/17 13:31 Last Admin: 09/02/17 13:20 Dose: 20 mg Diltiazem HCl (Cardizem) 30 mg PO Q6HR [facility] Last Admin: 09/03/17 03:02 Dose: 30 mg Diltiazem HCl (Cardizem Cd) 180 mg PO DAILY [facility] Last Admin: 09/04/17 07:42 Dose: 180 mg Diltiazem HCl (Cardizem) 60 mg PO ONETIME ONE Stop: 09/04/17 09:31 Last Admin: 09/04/17 10:53 Dose: 60 mg Ceftriaxone Sodium 2 gm/ (Sodium Chloride) 50 mls @ 100 mls/hr IV Q24H [facility] Last Admin: 09/05/17 12:39 Dose: 100 mls/hr Sodium Chloride (Normal Saline) 1,000 mls @ 125 mls/hr IV ASDIRECTED [facility] Stop: 09/01/17 19:14 Last Admin: 09/01/17 11:46 Dose: 125 mls/hr Diltiazem HCl 125 mg/ Dextrose (/Water) 125 mls @ 5 mls/hr IV TITRATE [facility]; Protocol Last Admin: 09/02/17 13:39 Dose: 5 mg/hr, 5 mls/hr Sodium Chloride (Normal Saline) 1,000 mls @ 50 mls/hr IV ASDIRECTED [facility] Last Admin: 09/05/17 05:48 Dose: 50 mls/hr Levalbuterol HCl (Xopenex) 1.25 mg NEB QIDRT [facility] Last Admin: 09/01/17 11:54 Dose: 1.25 mg Lorazepam (Ativan) 0.25 mg PO ONETIME ONE Stop: 08/30/17 09:19 Last Admin: 08/30/17 09:35 Dose: 0.25 mg Lorazepam (Ativan) 0.5 mg PO Q4H PRN PRN Reason: Anxiety Last Admin: 09/03/17 13:47 Dose: 0.5 mg Methylprednisolone Sodium Succinate (Solu-Medrol) 40 mg IVPUSH ONETIME ONE Stop: 08/30/17 08:45 Last Admin: 08/30/17 08:57 Dose: 40 mg Methylprednisolone Sodium Succinate (Solu-Medrol) 62.5 mg IVPUSH Q8H [facility] Last Admin: 09/04/17 06:08 Dose: 62.5 mg Methylprednisolone Sodium Succinate (Solu-Medrol) 40 mg IVPUSH Q8H [facility] Last Admin: 09/05/17 05:52 Dose: 40 mg Methylprednisolone Sodium Succinate (Solu-Medrol) 40 mg IVPUSH Q12H [facility] Last Admin: 09/06/17 05:20 Dose: 40 mg Pneumococcal Polyvalent Vaccine (Pneumovax 23) 0.5 ml IM .ONCE ONE Stop: 09/01/17 14:01 Last Admin: 09/01/17 13:09 Dose: Not Given Potassium Chloride (Klor-Con M20) 40 meq PO ONETIME ONE Stop: 09/04/17 09:01 Last Admin: 09/04/17 10:53 Dose: 40 meq - Exam Quality Assessment: Supplemental Oxygen, DVT Prophylaxis General: Alert, Oriented, Cooperative, Mild Distress Lungs: Normal Respiratory Effort, Decreased Breath Sounds. No: Crackles, Rales , Rhonchi, Wheezing Cardiovascular: Regular Rate, Regular Rhythm, No Murmurs GI/Abdominal Exam: Soft, Non-Tender, No Organomegaly, No Distention Extremities: Non-Tender, No Pedal Edema Skin: Warm, Dry, Intact - Problem List Review Problem List Initiated/Reviewed/Updated: Yes - My Orders Last 24 Hours: My Active Orders 09/06/17 10:47 Cardiac Monitoring Discontinue [RC] Click to Edit Convert IV to Saline Lock [OM.PC] Routine 09/06/17 21:00 Cefdinir [Omnicef] 300 mg PO BID 09/07/17 08:00 predniSONE 40 mg PO WITHBREAKFAST - Plan Plan:: ASSESSMENT AND PLAN - Acute exacerbation of COPD - she has remained on nasal cannula with further improvement in shortness of breath over the past 24 hours -Discontinue IV Solu-Medrol -Prednisone 40 mg by mouth daily Discontinue ceftriaxone and azithromycin -Omnicef 300 mg by mouth twice a day -Acapella -nebulized albuterol as needed -Cough suppressants Atrial fibrillation with rapid ventricular response-rate controlled with current therapy -metoprolol 25 mg twice daily -Diltiazem CD 240 mg by mouth daily Tobacco dependence - patient reports that she quit a few days ago. Long history of smoking. -Encourage ongoing cessation Maintenance issues - - DVT prophylaxis - mechanical - GI prophylaxis - not indicated - Nutrition - regular diet Disposition - anticipate discharge home in the next 1-2 days stay
[2017-09-06] MEDS: Albuterol 0.083% 2.5 MG/3 ML Neb Soln NEB PRN (13:26)
[2017-09-06] MEDS: Morphine 10 MG/0.5 ML Oral Syringe PO PRN ×2 (13:26→21:10)
[2017-09-06] MEDS: Ondansetron 4 MG Tab.DIS PO PRN (13:26)
[2017-09-06] MEDS: Cefdinir 300 MG Cap PO SCH (21:01)
[2017-09-06] MEDS: Benzonatate 100 MG Cap PO PRN (21:10)
[2017-09-07] MEDS: Albuterol 0.083% 2.5 MG/3 ML Neb Soln NEB PRN (02:02)
[2017-09-07] MEDS: Morphine 10 MG/0.5 ML Oral Syringe PO PRN ×3 (02:02→22:07)
[2017-09-07] MEDS: Metoprolol Tartrate 25 MG Tab PO SCH ×4 (04:22→22:08)
[2017-09-07] MEDS: Arformoterol 15 MCG/2 ML Neb Soln INH SCH ×2 (07:00→20:12)
[2017-09-07] MEDS: Tiotropium Inhaler 18 MCG Inhalation Powder Cap Kit of 5 INH SCH (07:00)
[2017-09-07] MEDS: Cefdinir 300 MG Cap PO SCH ×2 (09:13→20:12)
[2017-09-07] MEDS: Diltiazem 120 MG Cap.CD PO SCH (09:13)
[2017-09-07] MEDS: Gabapentin 300 MG Cap PO SCH ×2 (09:13→20:12)
[2017-09-07] MEDS: predniSONE 20 MG Tab PO SCH (09:13)
--- NOTE | 2017-09-07 09:49 | PCM.PN ---
- General Info Date of Service: 09/07/17 Subjective Update: This patient has been stable since yesterday, further improvement in shortness of breath. Still has been relatively inactive, sitting in the chair and walking in her room, has not yet been out walking in the hallways. Vital signs have remained within desired range and she has been afebrile. For the most part oxygen saturations have been stable. Functional Status: Reports: Tolerating Diet, Urinating - Review of Systems General: Reports: Weakness. Denies: Fever, Chills Pulmonary: Reports: Shortness of Breath. Denies: Pleuritic Chest Pain, Cough, Sputum, Hemoptysis, Wheezing Cardiovascular: Reports: Dyspnea on Exertion. Denies: Chest Pain, Palpitations , Orthopnea, PND, Edema Gastrointestinal: Reports: No Symptoms Neurological: Denies: Confusion - Patient Data Vitals - Most Recent: Last Vital Signs Temp 96.9 F 09/07/17 08:00 Pulse 88 09/07/17 09:13 Resp 18 09/07/17 08:00 BP 128/77 09/07/17 09:13 Pulse Ox 99 09/07/17 08:00 Weight - Most Recent: 139 lb 3.2 oz I&O - Last 24 Hours: Intake & Output 09/06/17 09/07/17 09/07/17 22:59 06:59 14:59 Intake Total 240 Output Total 400 300 200 Balance -400 -60 -200 Med Orders - Current: Current Medications Acetaminophen (Tylenol) 650 mg PO Q4H PRN PRN Reason: Pain (Mild 1-3)/fever Albuterol (Proventil Neb Soln) 2.5 mg NEB Q4H PRN PRN Reason: Shortness Of Breath/wheezing Last Admin: 09/07/17 02:02 Dose: 2.5 mg Albuterol (Ventolin Hfa) 0 gm INH Q2H PRN PRN Reason: Shortness of Breath Amitriptyline HCl (Elavil) 20 mg PO BEDTIME PRN PRN Reason: Insomnia Last Admin: 09/06/17 00:03 Dose: 20 mg Arformoterol Tartrate (Brovana) 15 mcg INH BIDRT [facility] Last Admin: 09/07/17 07:00 Dose: 15 mcg Benzonatate (Tessalon Perles) 100 mg PO TID PRN PRN Reason: Cough Last Admin: 09/06/17 21:10 Dose: 100 mg Cefdinir (Omnicef) 300 mg PO BID [facility] Last Admin: 09/07/17 09:13 Dose: 300 mg Diltiazem HCl (Cardizem Cd) 240 mg PO DAILY [facility] Last Admin: 09/07/17 09:13 Dose: 240 mg Gabapentin (Neurontin) 300 mg PO BID [facility] Last Admin: 09/07/17 09:13 Dose: 300 mg Guaifenesin/Codeine Phosphate (Robitussin Ac) 10 ml PO Q4H PRN PRN Reason: Cough Last Admin: 09/06/17 00:03 Dose: 10 ml Ibuprofen (Motrin) 600 mg PO Q6H PRN PRN Reason: Pain/Fever Last Admin: 09/06/17 00:02 Dose: 600 mg Lorazepam (Ativan) 0.5 mg PO Q2H PRN PRN Reason: Anxiety Last Admin: 09/04/17 07:37 Dose: 0.5 mg Metoprolol Tartrate (Lopressor) 25 mg PO Q6H [facility] Last Admin: 09/07/17 04:22 Dose: 25 mg Morphine Sulfate (Morphine 10 Mg/0.5 Ml Oral Syringe) 5 mg PO Q2H PRN PRN Reason: Dyspnea Last Admin: 09/07/17 02:02 Dose: 5 mg Ondansetron HCl (Zofran Odt) 4 mg PO Q6H PRN PRN Reason: Nausea able to take PO Last Admin: 09/06/17 13:26 Dose: 4 mg Ondansetron HCl (Zofran) 4 mg IV Q6H PRN PRN Reason: Nausea/Vomiting Polyethylene Glycol (Miralax) 17 gm PO DAILY PRN PRN Reason: Constipation Prednisone (Prednisone) 40 mg PO WITHBREAKFAST [facility] Last Admin: 09/07/17 09:13 Dose: 40 mg Senna/Docusate Sodium (Senna Plus) 1 tab PO BID PRN PRN Reason: Constipation Sodium Chloride (Saline Flush) 10 ml FLUSH ASDIRECTED PRN PRN Reason: Keep Vein Open Last Admin: 08/30/17 08:59 Dose: 10 ml Tiotropium [place] (Spiriva Handihaler) 18 mcg INH DAILY@0730 [facility] Last Admin: 09/07/17 07:00 Dose: 1 cap Discontinued Medications Acetaminophen (Tylenol Extra Strength) 1,000 mg PO ONETIME ONE Stop: 08/30/17 09:23 Last Admin: 08/30/17 09:33 Dose: 1,000 mg Albuterol (Proventil Neb Soln) 2.5 mg NEB ONETIME ONE Stop: 08/30/17 09:26 Last Admin: 08/30/17 09:37 Dose: 2.5 mg Albuterol/Ipratropium (Duoneb 3.0-0.5 Mg/3 Ml) 3 ml NEB QIDRT [facility] Last Admin: 09/01/17 12:43 Dose: Not Given Amlodipine Besylate (Norvasc) 5 mg PO ONETIME ONE Stop: 08/30/17 09:19 Last Admin: 08/30/17 09:33 Dose: 5 mg Amlodipine Besylate (Norvasc) 5 mg PO DAILY [facility] Last Admin: 09/02/17 08:34 Dose: 5 mg Azithromycin (Zithromax) 500 mg PO DAILY [facility] Last Admin: 09/06/17 09:40 Dose: 500 mg Diltiazem HCl (Diltiazem) 20 mg IVPUSH ONETIME ONE Stop: 09/02/17 13:31 Last Admin: 09/02/17 13:20 Dose: 20 mg Diltiazem HCl (Cardizem) 30 mg PO Q6HR [facility] Last Admin: 09/03/17 03:02 Dose: 30 mg Diltiazem HCl (Cardizem Cd) 180 mg PO DAILY [facility] Last Admin: 09/04/17 07:42 Dose: 180 mg Diltiazem HCl (Cardizem) 60 mg PO ONETIME ONE Stop: 09/04/17 09:31 Last Admin: 09/04/17 10:53 Dose: 60 mg Ceftriaxone Sodium 2 gm/ (Sodium Chloride) 50 mls @ 100 mls/hr IV Q24H [facility] Last Admin: 09/05/17 12:39 Dose: 100 mls/hr Sodium Chloride (Normal Saline) 1,000 mls @ 125 mls/hr IV ASDIRECTED [facility] Stop: 09/01/17 19:14 Last Admin: 09/01/17 11:46 Dose: 125 mls/hr Diltiazem HCl 125 mg/ Dextrose (/Water) 125 mls @ 5 mls/hr IV TITRATE [facility]; Protocol Last Admin: 09/02/17 13:39 Dose: 5 mg/hr, 5 mls/hr Sodium Chloride (Normal Saline) 1,000 mls @ 50 mls/hr IV ASDIRECTED [facility] Last Admin: 09/05/17 05:48 Dose: 50 mls/hr Levalbuterol HCl (Xopenex) 1.25 mg NEB QIDRT [facility] Last Admin: 09/01/17 11:54 Dose: 1.25 mg Lorazepam (Ativan) 0.25 mg PO ONETIME ONE Stop: 08/30/17 09:19 Last Admin: 08/30/17 09:35 Dose: 0.25 mg Lorazepam (Ativan) 0.5 mg PO Q4H PRN PRN Reason: Anxiety Last Admin: 09/03/17 13:47 Dose: 0.5 mg Methylprednisolone Sodium Succinate (Solu-Medrol) 40 mg IVPUSH ONETIME ONE Stop: 08/30/17 08:45 Last Admin: 08/30/17 08:57 Dose: 40 mg Methylprednisolone Sodium Succinate (Solu-Medrol) 62.5 mg IVPUSH Q8H [facility] Last Admin: 09/04/17 06:08 Dose: 62.5 mg Methylprednisolone Sodium Succinate (Solu-Medrol) 40 mg IVPUSH Q8H [facility] Last Admin: 09/05/17 05:52 Dose: 40 mg Methylprednisolone Sodium Succinate (Solu-Medrol) 40 mg IVPUSH Q12H [facility] Last Admin: 09/06/17 05:20 Dose: 40 mg Pneumococcal Polyvalent Vaccine (Pneumovax 23) 0.5 ml IM .ONCE ONE Stop: 09/01/17 14:01 Last Admin: 09/01/17 13:09 Dose: Not Given Potassium Chloride (Klor-Con M20) 40 meq PO ONETIME ONE Stop: 09/04/17 09:01 Last Admin: 09/04/17 10:53 Dose: 40 meq - Exam Quality Assessment: Supplemental Oxygen, DVT Prophylaxis General: Alert, Oriented, Cooperative, No Acute Distress Lungs: Decreased Breath Sounds. No: Rales, Rhonchi, Wheezing Cardiovascular: Regular Rate, No Murmurs, Irregular Rhythm GI/Abdominal Exam: Soft, Non-Tender, No Organomegaly, No Distention Extremities: Non-Tender, No Pedal Edema Skin: Warm, Dry, Intact - Problem List Review Problem List Initiated/Reviewed/Updated: Yes - My Orders Last 24 Hours: My Active Orders 09/06/17 10:47 Cardiac Monitoring Discontinue [RC] Click to Edit Convert IV to Saline Lock [OM.PC] Routine 09/06/17 21:00 Cefdinir [Omnicef] 300 mg PO BID 09/07/17 08:00 predniSONE 40 mg PO WITHBREAKFAST - Plan Plan:: ASSESSMENT AND PLAN - Acute exacerbation of COPD - no longer requiring use of BiPAP -Prednisone 40 mg by mouth daily -Omnicef 300 mg by mouth twice a day -Acapella -nebulized albuterol as needed -Cough suppressants -Increase activity Atrial fibrillation with rapid ventricular response-rate controlled with current therapy -metoprolol 25 mg twice daily -Diltiazem CD 240 mg by mouth daily -Consider initiation of anticoagulation Tobacco dependence - patient reports that she quit a few days ago. Long history of smoking. -Encourage ongoing cessation Maintenance issues - - DVT prophylaxis - mechanical - GI prophylaxis - not indicated - Nutrition - regular diet Disposition - anticipate discharge home tomorrow
[2017-09-07] MEDS: Benzonatate 100 MG Cap PO PRN ×2 (14:52→22:07)
[2017-09-07] MEDS: Codeine/guaiFENesin 100mg-10 MG/5 ML Syrup 10 ML Cup PO PRN (20:12)
[2017-09-08] MEDS: Metoprolol Tartrate 25 MG Tab PO SCH ×2 (03:13→10:17)
[2017-09-08] MEDS: Morphine 10 MG/0.5 ML Oral Syringe PO PRN (03:15)
[2017-09-08] MEDS: Arformoterol 15 MCG/2 ML Neb Soln INH SCH (07:03)
[2017-09-08] MEDS: Tiotropium Inhaler 18 MCG Inhalation Powder Cap Kit of 5 INH SCH (07:03)
[2017-09-08] MEDS: Benzonatate 100 MG Cap PO PRN (07:41)
[2017-09-08] MEDS: predniSONE 20 MG Tab PO SCH (07:41)
[2017-09-08 07:47] VITALS: BP 129/68
[2017-09-08] MEDS: Diltiazem 120 MG Cap.CD PO SCH (08:04)
[2017-09-08] MEDS: Gabapentin 300 MG Cap PO SCH (08:04)
[2017-09-08] MEDS: Cefdinir 300 MG Cap PO SCH (08:04)
--- NOTE | 2017-09-08 09:20 | PCM.DCSUM1 ---
Discharge Summary - Hospital Course Brief History: This patient is a 71-year-old woman who was admitted through the emergency department with cough, shortness of breath, and weakness secondary to bronchitis with COPD exacerbation. - Discharge Data Discharge Date: 09/08/17 Discharge Disposition: Home, W Home Health Agency 06 Condition: Stable - Discharge Diagnosis/Problem(s) (1) Hypoxia SNOMED Code(s): 514851728 ICD Code: R09.02 - HYPOXEMIA Status: Acute Current Visit: Yes (2) Bronchitis SNOMED Code(s): 17963678 ICD Code: J40 - BRONCHITIS, NOT SPECIFIED ACUTE OR CHRONIC Status: Acute Current Visit: Yes (3) Atrial fibrillation with RVR SNOMED Code(s): 123041792557539 ICD Code: I48.91 - UNSPECIFIED ATRIAL FIBRILLATION Status: Acute Current Visit: Yes (4) COPD with acute exacerbation SNOMED Code(s): 740846757 ICD Code: J44.1 - CHRONIC OBSTRUCTIVE PULMONARY DISEASE W (ACUTE) EXACERBATION Status: Acute Priority: High Current Visit: Yes - Patient Summary/Data Hospital Course: Aarti presented to the emergency room with 2 days of progressive cough and shortness of breath. She was now short of breath with even minimal activity. Cough had been dry and nonproductive. She was not aware of any fevers and has not traveled recently. No orthopnea or PND. No obvious sick contacts. She did report some mild achy chest discomfort that occurs with deep respiration. No significant change with exertion. She had some nausea but no vomiting. No change in bowel or bladder habits. She had not had recent treatment with antibiotics or steroids. She has not had relief from her albuterol inhaler. At baseline she uses 3 L of oxygen at home. Baseline functional status is very limited and she is able to walk only short distances before she develops significant dyspnea.Workup in the emergency room was remarkable for significant wheezing on examination. She is short of breath at rest at this time. Laboratory studies and chest x-ray are unremarkable other than the hyperinflation noted on the chest x-ray. She was admitted for management of a COPD exacerbation. She was admitted to the hospital with IV fluids for hydration, IV Solu-Medrol, and nebulizer therapy. Antibiotics were not initiated as was felt likely that the underlying bronchitis was viral in nature. Over the next 2 days of hospitalization she did not improve significantly so on the morning of the second day antibiotic therapy was initiated with Rocephin and azithromycin. Unfortunately over the next 24 hours she actually worsened and developed a rapid heart rate. EKG showed evidence of atrial fibrillation with rapid ventricular response and she was moved to the intensive care unit for management of the dysrhythmia. She was placed on continuous infusion of IV diltiazem after she received a 20 mg IV diltiazem bolus. With these interventions rate came under good control and she was transitioned to oral rate control with oral diltiazem and metoprolol. Heart rate remained relatively well controlled throughout the duration of her hospital stay with these interventions. Because of the atrial fibrillation she will be started on anticoagulation at the time of discharge. Respiratory status was significantly compromised when she was transferred to the intensive care unit and she was placed on noninvasive positive pressure ventilation. She uses over the next few days until her respiratory status improved. Prior to discharge she was up walking in the hallways with use of her supplemental oxygen. She will be discharged home on additional 2 days of oral antibiotic therapy with Omnicef. She completed course of glucocorticoid therapy prior to discharge. Activity will be as tolerated and she will resume her usual diet. Home care will be arranged for follow-up after discharge including home physical therapy and occupational therapy. - Patient Instructions Diet: Usual Diet as Tolerated Activity: As Tolerated Other/Special Instructions: Please schedule follow-up appointment with primary care provider within one week. Please arrange for home care services after discharge including home physical therapy and occupational therapy. - Discharge Plan Prescriptions/Med Rec: Benzonatate [Tessalon Perle] 100 mg PO TID PRN #20 capsule PRN Reason: Cough Cefdinir [IJD: Cefdinir] 300 mg PO BID #4 capsule Diltiazem HCl [Diltiazem 24Hr Cd] 240 mg PO DAILY #30 cap.er.24h Metoprolol Tartrate 50 mg PO DAILY #60 tablet Rivaroxaban [Xarelto] 20 mg PO DAILY #30 tablet Home Medications: Home Meds Albuterol Sulfate [Proair Hfa] 2 puff PO QID 04/29/15 [History] Amitriptyline [Elavil] 20 mg PO BEDTIME PRN 04/29/15 [History] Tiotropium [Spiriva HandiHaler] 1 cap PO DAILY 04/29/15 [History] *O2@3l 3 l INH ASDIRECTED PRN 08/30/17 [History] Arformoterol [Brovana] 1 dose INH BID 08/30/17 [History] Gabapentin [Neurontin] 300 mg PO BID 08/30/17 [History] Benzonatate [Tessalon Perle] 100 mg PO TID PRN #20 capsule 09/08/17 [Rx] Cefdinir [IJD: Cefdinir] 300 mg PO BID #4 capsule 09/08/17 [Rx] Diltiazem HCl [Diltiazem 24Hr Cd] 240 mg PO DAILY #30 cap.er.24h 09/08/17 [Rx] Metoprolol Tartrate 50 mg PO DAILY #60 tablet 09/08/17 [Rx] Rivaroxaban [Xarelto] 20 mg PO DAILY #30 tablet 09/08/17 [Rx] Patient Handouts: Chronic Obstructive Pulmonary Disease Exacerbation, Atrial Fibrillation, [id number], Acute Bronchitis, Adult Referrals: Kathleen Dobson PA [Primary Care Provider] - - Discharge Summary/Plan Comment DC Time >30 min.: No - Patient Data Vitals - Most Recent: Last Vital Signs Temp 96.9 F 09/08/17 07:00 Pulse 96 09/08/17 08:04 Resp 18 09/08/17 07:00 BP 129/68 09/08/17 08:04 Pulse Ox 95 09/08/17 07:00 Weight - Most Recent: 139 lb 3.2 oz I&O - Last 24 hours: Intake & Output 09/07/17 09/08/17 09/08/17 22:59 06:59 14:59 Output Total 800 500 200 Balance -800 -500 -200 Med Orders - Current: Current Medications Acetaminophen (Tylenol) 650 mg PO Q4H PRN PRN Reason: Pain (Mild 1-3)/fever Albuterol (Proventil Neb Soln) 2.5 mg NEB Q4H PRN PRN Reason: Shortness Of Breath/wheezing Last Admin: 09/07/17 02:02 Dose: 2.5 mg Albuterol (Ventolin Hfa) 0 gm INH Q2H PRN PRN Reason: Shortness of Breath Amitriptyline HCl (Elavil) 20 mg PO BEDTIME PRN PRN Reason: Insomnia Last Admin: 09/06/17 00:03 Dose: 20 mg Arformoterol Tartrate (Brovana) 15 mcg INH BIDRT [facility] Last Admin: 09/08/17 07:03 Dose: 15 mcg Benzonatate (Tessalon Perles) 100 mg PO TID PRN PRN Reason: Cough Last Admin: 09/08/17 07:41 Dose: 100 mg Cefdinir (Omnicef) 300 mg PO BID [facility] Last Admin: 09/08/17 08:04 Dose: 300 mg Diltiazem HCl (Cardizem Cd) 240 mg PO DAILY [facility] Last Admin: 09/08/17 08:04 Dose: 240 mg Gabapentin (Neurontin) 300 mg PO BID [facility] Last Admin: 09/08/17 08:04 Dose: 300 mg Guaifenesin/Codeine Phosphate (Robitussin Ac) 10 ml PO Q4H PRN PRN Reason: Cough Last Admin: 09/07/17 20:12 Dose: 10 ml Ibuprofen (Motrin) 600 mg PO Q6H PRN PRN Reason: Pain/Fever Last Admin: 09/06/17 00:02 Dose: 600 mg Lorazepam (Ativan) 0.5 mg PO Q2H PRN PRN Reason: Anxiety Last Admin: 09/04/17 07:37 Dose: 0.5 mg Metoprolol Tartrate (Lopressor) 25 mg PO Q6H [facility] Last Admin: 09/08/17 03:13 Dose: 25 mg Morphine Sulfate (Morphine 10 Mg/0.5 Ml Oral Syringe) 5 mg PO Q2H PRN PRN Reason: Dyspnea Last Admin: 09/08/17 03:15 Dose: 5 mg Ondansetron HCl (Zofran Odt) 4 mg PO Q6H PRN PRN Reason: Nausea able to take PO Last Admin: 09/06/17 13:26 Dose: 4 mg Ondansetron HCl (Zofran) 4 mg IV Q6H PRN PRN Reason: Nausea/Vomiting Polyethylene Glycol (Miralax) 17 gm PO DAILY PRN PRN Reason: Constipation Senna/Docusate Sodium (Senna Plus) 1 tab PO BID PRN PRN Reason: Constipation Sodium Chloride (Saline Flush) 10 ml FLUSH ASDIRECTED PRN PRN Reason: Keep Vein Open Last Admin: 08/30/17 08:59 Dose: 10 ml Tiotropium [place] (Spiriva Handihaler) 18 mcg INH DAILY@0730 [facility] Last Admin: 09/08/17 07:03 Dose: 1 cap Discontinued Medications Acetaminophen (Tylenol Extra Strength) 1,000 mg PO ONETIME ONE Stop: 08/30/17 09:23 Last Admin: 08/30/17 09:33 Dose: 1,000 mg Albuterol (Proventil Neb Soln) 2.5 mg NEB ONETIME ONE Stop: 08/30/17 09:26 Last Admin: 08/30/17 09:37 Dose: 2.5 mg Albuterol/Ipratropium (Duoneb 3.0-0.5 Mg/3 Ml) 3 ml NEB QIDRT [facility] Last Admin: 09/01/17 12:43 Dose: Not Given Amlodipine Besylate (Norvasc) 5 mg PO ONETIME ONE Stop: 08/30/17 09:19 Last Admin: 08/30/17 09:33 Dose: 5 mg Amlodipine Besylate (Norvasc) 5 mg PO DAILY [facility] Last Admin: 09/02/17 08:34 Dose: 5 mg Azithromycin (Zithromax) 500 mg PO DAILY [facility] Last Admin: 09/06/17 09:40 Dose: 500 mg Diltiazem HCl (Diltiazem) 20 mg IVPUSH ONETIME ONE Stop: 09/02/17 13:31 Last Admin: 09/02/17 13:20 Dose: 20 mg Diltiazem HCl (Cardizem) 30 mg PO Q6HR [facility] Last Admin: 09/03/17 03:02 Dose: 30 mg Diltiazem HCl (Cardizem Cd) 180 mg PO DAILY [facility] Last Admin: 09/04/17 07:42 Dose: 180 mg Diltiazem HCl (Cardizem) 60 mg PO ONETIME ONE Stop: 09/04/17 09:31 Last Admin: 09/04/17 10:53 Dose: 60 mg Ceftriaxone Sodium 2 gm/ (Sodium Chloride) 50 mls @ 100 mls/hr IV Q24H [facility] Last Admin: 09/05/17 12:39 Dose: 100 mls/hr Sodium Chloride (Normal Saline) 1,000 mls @ 125 mls/hr IV ASDIRECTED [facility] Stop: 09/01/17 19:14 Last Admin: 09/01/17 11:46 Dose: 125 mls/hr Diltiazem HCl 125 mg/ Dextrose (/Water) 125 mls @ 5 mls/hr IV TITRATE DE; Protocol Last Admin: 09/02/17 13:39 Dose: 5 mg/hr, 5 mls/hr Sodium Chloride (Normal Saline) 1,000 mls @ 50 mls/hr IV ASDIRECTED [facility] Last Admin: 09/05/17 05:48 Dose: 50 mls/hr Levalbuterol HCl (Xopenex) 1.25 mg NEB QIDRT [facility] Last Admin: 09/01/17 11:54 Dose: 1.25 mg Lorazepam (Ativan) 0.25 mg PO ONETIME ONE Stop: 08/30/17 09:19 Last Admin: 08/30/17 09:35 Dose: 0.25 mg Lorazepam (Ativan) 0.5 mg PO Q4H PRN PRN Reason: Anxiety Last Admin: 09/03/17 13:47 Dose: 0.5 mg Methylprednisolone Sodium Succinate (Solu-Medrol) 40 mg IVPUSH ONETIME ONE Stop: 08/30/17 08:45 Last Admin: 08/30/17 08:57 Dose: 40 mg Methylprednisolone Sodium Succinate (Solu-Medrol) 62.5 mg IVPUSH Q8H [facility] Last Admin: 09/04/17 06:08 Dose: 62.5 mg Methylprednisolone Sodium Succinate (Solu-Medrol) 40 mg IVPUSH Q8H [facility] Last Admin: 09/05/17 05:52 Dose: 40 mg Methylprednisolone Sodium Succinate (Solu-Medrol) 40 mg IVPUSH Q12H [facility] Last Admin: 09/06/17 05:20 Dose: 40 mg Pneumococcal Polyvalent Vaccine (Pneumovax 23) 0.5 ml IM .ONCE ONE Stop: 09/01/17 14:01 Last Admin: 09/01/17 13:09 Dose: Not Given Potassium Chloride (Klor-Con M20) 40 meq PO ONETIME ONE Stop: 09/04/17 09:01 Last Admin: 09/04/17 10:53 Dose: 40 meq Prednisone (Prednisone) 40 mg PO WITHBREAKFAST [facility] Last Admin: 09/08/17 07:41 Dose: 40 mg - Exam Quality Assessment: Reports: Supplemental Oxygen, DVT Prophylaxis General: Reports: Alert, Oriented, Cooperative, No Acute Distress Lungs: Reports: Decreased Breath Sounds. Denies: Rales, Rhonchi, Wheezing Cardiovascular: Reports: Regular Rate, No Murmurs, Irregular Rhythm GI/Abdominal Exam: Soft, Non-Tender, No Organomegaly, No Distention Extremities: Non-Tender, No Pedal Edema Skin: Reports: Warm, Dry, Intact
== END 2017-09-08 11:35 | disposition home health service (06) | DRG 192 ==
LOC: JP.ED 08:20 → JP.MS 10:59 → JP.ICU 09-02 13:19
PROVIDERS: ADMIT Internal Medicine; ATTEND Hospitalist
DX: J44.0 Chronic obstructive pulmonary disease with (acute) lower respiratory infection (principal); J20.9 Acute bronchitis, unspecified; J44.1 Chronic obstructive pulmonary disease with (acute) exacerbation; I10 Essential (primary) hypertension; F17.210 Nicotine dependence, cigarettes, uncomplicated; Z99.81 Dependence on supplemental oxygen; R06.02 Shortness of breath; R05 Cough; R09.02 Hypoxemia; I48.91 Unspecified atrial fibrillation; M54.9 Dorsalgia, unspecified; G89.29 Other chronic pain; Z79.01 Long term (current) use of anticoagulants; Z88.8 Allergy status to other drugs, medicaments and biological substances
CPT/HCPCS: 36415; 71045 ×2; 80048; 81001; 84484; 85027; 94640; 96374; 99285 ×2; A9270 ×3; J2920; J7050; 36600; 82803; 85025; 93005; 94660; 94667; J0696; J2930; J3490; J7040; J7060; J7605; J7612; J7620